=== PATIENT | male | born 1950 | race Caucasian/White ===

== ENCOUNTER 2016-08-20 12:22 | Inpatient (IN) | payer MEDICARE, OTHER ==
[~2016-08-20] VITALS: Ht 182.9 cm; Wt 74.7 kg
[~2016-08-20 12:22] MED LIST: CEPH-376 PO; HYDR50CA2 PO; NAPR500T3 PO; ONDA-40 PO
[2016-08-20] MEDS ORDERED: CEFTRIAXONE PMX 1GM/50ML 50 ML ONE (15:13)
[2016-08-20] MEDS ORDERED: LORazepam 2 MG/ML, 1ML ONE ×2 (15:15→22:34)
[2016-08-20] MEDS ORDERED: ACETAMINOPHEN 325 MG TABLET ONE (16:37)
[2016-08-20] MEDS ORDERED: LORazepam 1MG TABLET PO PRN (17:00)
[2016-08-20] MEDS: DOXYCYCLINE 100 MG in DEXTROSE 5% 250 ML IV SCH (21:45)
[2016-08-20] MEDS: NICOTINE 21 MG/24 HR PATCH.TD24 TD SCH (21:45)
[2016-08-20] MEDS: LORazepam 2 MG/ML, 1ML IV PRN (22:35)
[2016-08-20] MEDS ORDERED: POTASSIUM CHLORIDE 20 MEQ TAB.ER.PRT ONE (22:54)
[2016-08-20] MEDS: METOPROLOL TARTRATE 25 MG TABLET PO SCH (23:45)
[2016-08-21] MEDS: LORazepam 2 MG/ML, 1ML IV PRN (06:45)
[2016-08-21] MEDS ORDERED: LORazepam 2 MG/ML, 1ML ONE ×2 (06:46→10:41)
[2016-08-21 07:18] VITALS: BP 135/89
[2016-08-21] MEDS: METOPROLOL TARTRATE 25 MG TABLET PO SCH ×2 (10:45→21:56)
[2016-08-21] MEDS ORDERED: LORazepam 2 MG/ML, 1ML IV PRN (14:00)
[2016-08-21 14:31] VITALS: BP 135/81
[2016-08-21] MEDS ORDERED: MAGNESIUM SULFATE PMX 2GM/50ML 50 ML IV ONE (16:30)
[2016-08-21] MEDS ORDERED: THIAMINE IV SCH (17:00)
[2016-08-21] MEDS ORDERED: DEXTROSE 5% IV SCH (17:00)
[2016-08-21] MEDS: CEFTRIAXONE 1,000 MG in SODIUM CHLORIDE 0.9% 50 ML IVPB SCH ×2 (17:00→18:01)
[2016-08-21] MEDS ORDERED: FOLIC ACID IV SCH (17:00)
[2016-08-21] MEDS ORDERED: MVI ADULT IV SCH (17:00)
[2016-08-21] MEDS: POTASSIUM CHLORIDE 20 MEQ TAB.ER.PRT PO SCH (18:01)
[2016-08-21 19:37] VITALS: BP 127/77
[2016-08-21] MEDS: METRONIDAZOLE PMX 500MG/100ML 100 ML IVPB SCH (20:25)
[2016-08-21] MEDS: THIAMINE 100 MG in SODIUM CHLORIDE 0.9% 50 ML IV SCH (20:25)
[2016-08-21] MEDS: MULTIVITAMIN 1 TABLET PO SCH (21:55)
[2016-08-21] MEDS: NICOTINE 21 MG/24 HR PATCH.TD24 TD SCH (21:55)
[2016-08-21] MEDS: FOLIC ACID 1 MG TABLET PO SCH (21:55)
[2016-08-21] MEDS: DOXYCYCLINE 100 MG in DEXTROSE 5% 250 ML IV SCH (22:57)
[2016-08-22] MEDS: SODIUM CHLORIDE 0.9% 1,000 ML IV SCH ×2 (00:46→23:47)
[2016-08-22 01:05] VITALS: BP 116/77
[2016-08-22] MEDS: METOPROLOL TARTRATE 25 MG TABLET PO SCH ×2 (05:08→18:16)
[2016-08-22] MEDS: METRONIDAZOLE PMX 500MG/100ML 100 ML IVPB SCH ×2 (05:08→13:00)
[2016-08-22 06:07] LABS: BLOOD UREA NITROGEN 11 mg/dL (7-18)
[2016-08-22] MEDS ORDERED: POTASSIUM PHOSPHATE 44 MEQ in SODIUM CHLORIDE 0.9% 500 ML IV ONE (07:00)
[2016-08-22 07:26] VITALS: BP 139/76
[2016-08-22] MEDS: MULTIVITAMIN 1 TABLET PO SCH (08:27)
[2016-08-22] MEDS: POTASSIUM CHLORIDE 20 MEQ TAB.ER.PRT PO SCH ×2 (08:27→13:10)
[2016-08-22] MEDS: FOLIC ACID 1 MG TABLET PO SCH (08:27)
[2016-08-22] MEDS: DOXYCYCLINE 100 MG in DEXTROSE 5% 250 ML IV SCH (11:19)
[2016-08-22 13:45] VITALS: BP 129/77
[2016-08-22 15:13] LABS: ASPARTATE AMINO TRANSFERASE 42 U/L (15-37); BLOOD UREA NITROGEN 9 mg/dL (7-18)
[2016-08-22] MEDS: LORazepam 2 MG/ML, 1ML IV PRN ×3 (16:54→23:59)
[2016-08-22] MEDS: CEFTRIAXONE PMX 2GM/50ML 50 ML IVPB SCH (17:18)
[2016-08-22] MEDS: THIAMINE 100 MG in SODIUM CHLORIDE 0.9% 50 ML IV SCH (17:24)
[2016-08-22] MEDS ORDERED: PLEASE ENTER HEIGHT MC SCH (17:30)
[2016-08-22 18:26] VITALS: BP 163/104
[2016-08-22 18:51] VITALS: BP 130/77
[2016-08-22] MEDS: NICOTINE 21 MG/24 HR PATCH.TD24 TD SCH (19:43)
[2016-08-22] MEDS: CHLORDIAZEPOXIDE 25 MG CAPSULE PO PRN (19:44)
[2016-08-23 00:58] VITALS: BP 172/92
[2016-08-23] MEDS: LORazepam 2 MG/ML, 1ML IV PRN ×8 (02:01→23:51)
[2016-08-23 06:19] VITALS: BP 154/89
[2016-08-23] MEDS: METOPROLOL TARTRATE 25 MG TABLET PO SCH ×2 (06:23→17:07)
[2016-08-23 06:57] VITALS: BP 131/77
[2016-08-23] MEDS: MULTIVITAMIN 1 TABLET PO SCH (07:23)
[2016-08-23] MEDS: FOLIC ACID 1 MG TABLET PO SCH (07:23)
[2016-08-23 07:28] LABS: ASPARTATE AMINO TRANSFERASE 51 U/L (15-37); BLOOD UREA NITROGEN 7 mg/dL (7-18)
[2016-08-23 08:53] LABS: BLOOD UREA NITROGEN 12 mg/dL (7-18)
[2016-08-23 08:55] LABS: IS PT STATUS REG ER OR PRE ER? NO
[2016-08-23] MEDS ORDERED: SODIUM PHOSPHATE 20 MMOL in SODIUM CHLORIDE 0.9% 500 ML IV ONE (10:30)
[2016-08-23] MEDS ORDERED: POTASSIUM CHLORIDE 40 MEQ in SODIUM CHLORIDE 0.9% 500 ML IV ONE (11:00)
[2016-08-23 12:44] VITALS: BP 163/93
[2016-08-23] MEDS: CHLORDIAZEPOXIDE 25 MG CAPSULE PO PRN (13:39)
[2016-08-23 14:04] LABS: BLOOD UREA NITROGEN 12 mg/dL (7-18)
[2016-08-23 14:07] LABS: ASPARTATE AMINO TRANSFERASE 90 U/L (15-37)
[2016-08-23 14:09] LABS: IS PT STATUS REG ER OR PRE ER? NO
[2016-08-23] MEDS: CEFTRIAXONE PMX 2GM/50ML 50 ML IVPB SCH (17:06)
[2016-08-23] MEDS: THIAMINE 100 MG in SODIUM CHLORIDE 0.9% 50 ML IV SCH (17:06)
[2016-08-23 19:12] VITALS: BP 156/90
[2016-08-23] MEDS: NICOTINE 21 MG/24 HR PATCH.TD24 TD SCH (20:30)
[2016-08-23] MEDS: SODIUM CHLORIDE 0.9% 1,000 ML IV SCH (20:42)
[2016-08-24 02:18] VITALS: BP 155/92
[2016-08-24] MEDS: LORazepam 2 MG/ML, 1ML IV PRN (04:21)
[2016-08-24 05:07] LABS: BLOOD UREA NITROGEN 5 mg/dL (7-18)
[2016-08-24] MEDS: NS + 40MEQ KCL 1,000 ML IV SCH ×3 (05:50→22:18)
[2016-08-24 08:18] VITALS: BP 130/80
[2016-08-24] MEDS ORDERED: POTASSIUM CHLORIDE 40 MEQ in SODIUM CHLORIDE 0.9% 500 ML IV ONE (10:30)
[2016-08-24] MEDS: MULTIVITAMIN 1 TABLET PO SCH (10:48)
[2016-08-24] MEDS: FOLIC ACID 1 MG TABLET PO SCH (10:48)
[2016-08-24] MEDS: METOPROLOL TARTRATE 25 MG TABLET PO SCH ×2 (10:48→21:00)
[2016-08-24 11:31] VITALS: BP 144/91
[2016-08-24 14:00] VITALS: BP 140/91
[2016-08-24 14:08] LABS: POTASSIUM,URINE RANDOM 23 mmol/L
[2016-08-24] MEDS: CEFTRIAXONE PMX 2GM/50ML 50 ML IVPB SCH (17:39)
[2016-08-24 19:35] VITALS: BP 138/79
[2016-08-24] MEDS: THIAMINE 100 MG in SODIUM CHLORIDE 0.9% 50 ML IV SCH (22:19)
[2016-08-24] MEDS: NICOTINE 21 MG/24 HR PATCH.TD24 TD SCH (22:26)
[2016-08-25 01:44] VITALS: BP 140/71
[2016-08-25 05:51] LABS: BLOOD UREA NITROGEN 6 mg/dL (7-18)
[2016-08-25] MEDS: METOPROLOL TARTRATE 25 MG TABLET PO SCH ×2 (06:10→18:07)
[2016-08-25 07:39] VITALS: BP 126/71
[2016-08-25] MEDS: NS + 40MEQ KCL 1,000 ML IV SCH ×2 (08:32→16:00)
[2016-08-25] MEDS: MULTIVITAMIN 1 TABLET PO SCH (08:57)
[2016-08-25] MEDS: FOLIC ACID 1 MG TABLET PO SCH (08:57)
[2016-08-25 14:59] VITALS: BP 110/67
[2016-08-25] MEDS: CEFTRIAXONE PMX 2GM/50ML 50 ML IVPB SCH (16:17)
[2016-08-25 19:02] VITALS: BP 134/79
[2016-08-25] MEDS: NICOTINE 21 MG/24 HR PATCH.TD24 TD SCH (20:25)
[2016-08-25] MEDS: THIAMINE 100 MG in SODIUM CHLORIDE 0.9% 50 ML IV SCH (20:25)
[2016-08-26 02:50] VITALS: BP 129/89
[2016-08-26 05:34] LABS: ASPARTATE AMINO TRANSFERASE 61 U/L (15-37); BLOOD UREA NITROGEN 8 mg/dL (7-18)
[2016-08-26 06:43] LABS: DIFF TOTAL CELLS COUNTED 100 CELL DIFF
[2016-08-26 06:49] LABS: VERIFY COUNTS? YES
[2016-08-26 06:50] LABS: ANISOCYTOSIS 1+
[2016-08-26 07:42] VITALS: BP 133/78
[2016-08-26] MEDS: MULTIVITAMIN 1 TABLET PO SCH (08:28)
[2016-08-26] MEDS: FOLIC ACID 1 MG TABLET PO SCH (08:28)
[2016-08-26] MEDS: CHLORDIAZEPOXIDE 25 MG CAPSULE PO PRN (08:28)
[2016-08-26] MEDS: METOPROLOL TARTRATE 25 MG TABLET PO SCH ×2 (08:29→16:42)
[2016-08-26 13:30] VITALS: BP 135/72
[2016-08-26] MEDS: CEFTRIAXONE PMX 2GM/50ML 50 ML IVPB SCH (16:42)
[2016-08-26 19:34] VITALS: BP 138/78
[2016-08-26] MEDS: NICOTINE 21 MG/24 HR PATCH.TD24 TD SCH (20:22)
[2016-08-26] MEDS ORDERED: ENOXAPARIN 40 MG/0.4 ML SQ SCH (21:30)
[2016-08-26] MEDS: THIAMINE 100 MG in SODIUM CHLORIDE 0.9% 50 ML IV SCH (22:18)
[2016-08-27 02:12] VITALS: BP 147/79
[2016-08-27 05:50] VITALS: BP 146/71
[2016-08-27] MEDS: METOPROLOL TARTRATE 25 MG TABLET PO SCH (05:52)
[2016-08-27 06:40] VITALS: BP 128/72
[2016-08-27] MEDS: MULTIVITAMIN 1 TABLET PO SCH (10:00)
[2016-08-27] MEDS: FOLIC ACID 1 MG TABLET PO SCH (10:00)
[2016-08-27] MEDS ORDERED: THIAMINE 100MG TABLET PO SCH (11:30)
[2016-08-27] MEDS ORDERED: CEFDINIR 300 MG CAPSULE PO SCH (11:30)
[2016-08-27] MEDS ORDERED: GUAIFENESIN 200 MG TABLET PO SCH (11:30)
[2016-08-27] MEDS ORDERED: LORA-446 PO (11:44)
[2016-08-27] MEDS ORDERED: THIA100T6 PO (11:44)
[2016-08-27] MEDS ORDERED: METO25TA35 PO (11:44)
[2016-08-27] MEDS ORDERED: FOLI-17 PO (11:44)
[2016-08-27] MEDS ORDERED: GUAI200T3 PO (11:44)
[2016-08-27] MEDS ORDERED: CEFD300C37 PO (11:44)
[2016-08-27] MEDS ORDERED: PNEUMOCOCCAL 23 VACCINE IM-VACC ONE (13:30)
[2016-08-27 13:40] VITALS: BP 146/74
== END 2016-08-27 14:40 | DRG 871 ==
LOC: ED 14:00 → 5SO 15:55 → ED 17:12 → 4WST 08-24 11:21 → DCLOUNGE 08-27 14:05
PROVIDERS: ADMIT Internal Medicine; ATTEND Internal Medicine
PROC: HZ34ZZZ Individual Counseling for Substance Abuse Treatment, Interpersonal (ICD-10-PCS; principal; 2016-08-20)
PROC: HZ2ZZZZ Detoxification Services for Substance Abuse Treatment (ICD-10-PCS; 2016-08-20)
DX: A41.9 Sepsis, unspecified organism (principal); J69.0 Pneumonitis due to inhalation of food and vomit; J15.4 Pneumonia due to other streptococci; J96.01 Acute respiratory failure with hypoxia; F10.239 Alcohol dependence with withdrawal, unspecified; E46 Unspecified protein-calorie malnutrition; E87.1 Hypo-osmolality and hyponatremia; I48.92 Unspecified atrial flutter; I47.2 Ventricular tachycardia; E87.6 Hypokalemia; B95.3 Streptococcus pneumoniae as the cause of diseases classified elsewhere; D64.9 Anemia, unspecified; E83.39 Other disorders of phosphorus metabolism; F17.210 Nicotine dependence, cigarettes, uncomplicated; G62.1 Alcoholic polyneuropathy; W18.30XA Fall on same level, unspecified, initial encounter; F99 Mental disorder, not otherwise specified; I48.91 Unspecified atrial fibrillation; F45.8 Other somatoform disorders; Y93.89 Activity, other specified; Z79.899 Other long term (current) drug therapy; Y92.89 Other specified places as the place of occurrence of the external cause; Z91.19 Patient's noncompliance with other medical treatment and regimen; Z68.22 Body mass index [BMI] 22.0-22.9, adult; Z71.51 Drug abuse counseling and surveillance of drug abuser; Z71.41 Alcohol abuse counseling and surveillance of alcoholic
CPT/HCPCS: 36415; 71010; 80048; 80053; 80061; 80307; 82040; 82436; 83605; 83735; 83880; 83930; 83935; 84100; 84132; 84133; 84145; 84300; 84443; 84484; 85025; 87040; 87077; 87181; 87324; 90732; 93005; 93308; 93321; 93325; 96374; J0696; J1650; J3411; J3480; J7060; J2060; J3475; J7030; J7040

== ENCOUNTER 2016-12-20 14:38 | Emergency (ER) | payer MEDICARE ==
[~2016-12-20] VITALS: Ht 177.8 cm; Wt 70.0 kg
[~2016-12-20 14:38] MED LIST changes: +CEFD300C37 PO; +FOLI-17 PO; +GUAI200T3 PO; +LORA-446 PO; +METO25TA35 PO; -ONDA-40 PO; +ONDA8TAB15 PO; +THIA100T6 PO
[2016-12-20 15:18] LABS: HEMATOCRIT 47.5 % (39.2-51.8); HEMOGLOBIN 15.9 g/dL (13.7-18.0)
[2016-12-20 15:31] LABS: ASPARTATE AMINO TRANSFERASE 127 U/L (15-37); BLOOD UREA NITROGEN 5 mg/dL (7-18)
[2016-12-20 15:45] LABS: DIFF TOTAL CELLS COUNTED 100 CELL DIFF
[2016-12-20 15:48] LABS: VERIFY COUNTS? YES
[2016-12-20 19:19] VITALS: BP 100/66
== END 2016-12-20 19:24 | disposition home or self-care (01) ==
LOC: ED 19:00
DX: F10.120 Alcohol abuse with intoxication, uncomplicated (principal)
CPT/HCPCS: 36415; 70450; 80053; 85025; 99285

== ENCOUNTER 2017-04-15 09:05 | Emergency (ER) | payer MEDICARE ==
[~2017-04-15] VITALS: Ht 182.9 cm; Wt 80.0 kg
[~2017-04-15 09:05] MED LIST changes: -NAPR500T3 PO; +NAPR500T4 PO
[2017-04-15] MEDS ORDERED: LORazepam 2 MG/ML, 1ML ONE ×2 (09:26→09:56)
[2017-04-15] MEDS ORDERED: SODIUM CHLORIDE FLUSH 10ML SYR IVF ONE (09:30)
[2017-04-15] MEDS ORDERED: SODIUM CHLORIDE 0.9% 1,000ML IVBOLUS ONE ×2 (09:30→11:30)
[2017-04-15] MEDS: LORazepam 2 MG/ML, 1ML IVPush PRN ×2 (09:50→10:11)
[2017-04-15 10:33] VITALS: BP 130/91
[2017-04-15 10:35] LABS: BASOPHILS # (AUTO) 0.05 x10^3/uL (0-0.1); BASOPHILS % (AUTO) 1 % (0-1); EOSINOPHILS # (AUTO) 0.01 x10^3/uL (0-0.4); EOSINOPHILS % (AUTO) 0 % (1-7); LYMPHOCYTES # (AUTO) 1.13 x10^3/uL (1-3.4); LYMPHOCYTES % (AUTO) 22 % (22-44); MD NO; MEAN CORPUSCULAR HEMOGLOBIN 29.2 pg (27.5-34.5); MEAN CORPUSCULAR HGB CONC 33.3 g/dL (33.2-36.2); MEAN CORPUSCULAR VOLUME 87.9 fL (81-97); MEAN PLATELET VOLUME 7.1 fL (7.4-10.4); MONOCYTES # (AUTO) 0.29 x10^3/uL (0.2-0.8); MONOCYTES % (AUTO) 6 % (2-9); NEUTROPHILS # (AUTO) 3.75 x10^3/uL (1.8-6.8); NEUTROPHILS % (AUTO) 72 % (42-75); PLATELET COUNT 453 x10^3/uL (130-400); RED BLOOD COUNT 4.24 x10^6/uL (4.38-5.82); RED CELL DISTRIBUTION WIDTH 17.6 % (9.4-14.8)
[2017-04-15 10:48] LABS: ALANINE AMINOTRANSFERASE 115 U/L (12-78); ALBUMIN 3.3 g/dL (3.4-5.0); ANION GAP 11 mmol/L (5-15); CALCIUM 7.9 mg/dL (8.5-10.1); CHLORIDE 102 mmol/L (98-107); CREATININE 0.43 mg/dL (0.7-1.3)
[2017-04-15 10:50] LABS: ALKALINE PHOSPHATASE 66 U/L (45-117); BILIRUBIN,TOTAL 0.4 mg/dL (0.2-1.0); TOTAL PROTEIN 6.8 g/dL (6.4-8.2)
== END 2017-04-15 13:00 | disposition home or self-care (01) ==
LOC: ED 10:35
DX: F10.239 Alcohol dependence with withdrawal, unspecified (principal); R45.1 Restlessness and agitation
CPT/HCPCS: 36415; 71045; 80053; 85025; 93005; 96374; 99285; J2060; J7030

== ENCOUNTER 2017-04-22 20:53 | Emergency (ER) | payer MEDICARE ==
[~2017-04-22] VITALS: Ht 182.9 cm; Wt 76.0 kg
[2017-04-22] MEDS ORDERED: LORazepam 1MG TABLET PO ONE (21:30)
[2017-04-22] MEDS ORDERED: THIAMINE 100MG TABLET PO ONE (21:30)
[2017-04-22] MEDS ORDERED: THIAMINE 100MG TABLET ONE (21:47)
[2017-04-22] MEDS ORDERED: LORazepam 1MG TABLET ONE (21:48)
[2017-04-22 21:57] LABS: BASOPHILS # (AUTO) 0.02 x10^3/uL (0-0.1); BASOPHILS % (AUTO) 1 % (0-1); EOSINOPHILS # (AUTO) 0.09 x10^3/uL (0-0.4); EOSINOPHILS % (AUTO) 2 % (1-7); LYMPHOCYTES # (AUTO) 1.47 x10^3/uL (1-3.4); LYMPHOCYTES % (AUTO) 30 % (22-44); MD NO; MEAN CORPUSCULAR HEMOGLOBIN 29.4 pg (27.5-34.5); MEAN CORPUSCULAR HGB CONC 32.9 g/dL (33.2-36.2); MEAN CORPUSCULAR VOLUME 89.3 fL (81-97); MEAN PLATELET VOLUME 7.9 fL (7.4-10.4); MONOCYTES # (AUTO) 0.53 x10^3/uL (0.2-0.8); MONOCYTES % (AUTO) 11 % (2-9); NEUTROPHILS # (AUTO) 2.84 x10^3/uL (1.8-6.8); NEUTROPHILS % (AUTO) 57 % (42-75); PLATELET COUNT 142 x10^3/uL (130-400); RED BLOOD COUNT 4.33 x10^6/uL (4.38-5.82); RED CELL DISTRIBUTION WIDTH 17.6 % (9.4-14.8)
[2017-04-22 22:09] LABS: ALANINE AMINOTRANSFERASE 138 U/L (12-78); ALBUMIN 3.2 g/dL (3.4-5.0); ANION GAP 10 mmol/L (5-15); CALCIUM 8.1 mg/dL (8.5-10.1); CHLORIDE 95 mmol/L (98-107); CREATININE 0.46 mg/dL (0.7-1.3)
[2017-04-22 22:11] LABS: ALKALINE PHOSPHATASE 59 U/L (45-117); BILIRUBIN,TOTAL 0.3 mg/dL (0.2-1.0); TOTAL PROTEIN 7.2 g/dL (6.4-8.2)
[2017-04-22 22:30] VITALS: BP 145/78
== END 2017-04-22 23:25 | disposition home or self-care (01) ==
LOC: ED 21:38
DX: F10.239 Alcohol dependence with withdrawal, unspecified (principal); E87.1 Hypo-osmolality and hyponatremia; R79.89 Other specified abnormal findings of blood chemistry; I10 Essential (primary) hypertension; D72.829 Elevated white blood cell count, unspecified
CPT/HCPCS: 36415; 80053; 85025; 99284

== ENCOUNTER 2017-08-08 18:49 | Emergency (ER) | payer MEDICARE ==
[~2017-08-08] VITALS: Ht 182.9 cm; Wt 77.5 kg
[~2017-08-08 18:49] MED LIST changes: +NAPR-685 PO; -NAPR500T4 PO
[2017-08-08 18:52] VITALS: BP 101/60
[2017-08-08 19:45] LABS: BASOPHILS # (AUTO) 0.03 x10^3/uL (0-0.1); BASOPHILS % (AUTO) 0 % (0-1); EOSINOPHILS # (AUTO) 0.23 x10^3/uL (0-0.4); EOSINOPHILS % (AUTO) 2 % (1-7); LYMPHOCYTES # (AUTO) 3.23 x10^3/uL (1-3.4); LYMPHOCYTES % (AUTO) 32 % (22-44); MD NO; MEAN CORPUSCULAR HEMOGLOBIN 28.8 pg (27.5-34.5); MEAN CORPUSCULAR VOLUME 87.3 fL (81-97); MONOCYTES # (AUTO) 0.39 x10^3/uL (0.2-0.8); MONOCYTES % (AUTO) 4 % (2-9); NEUTROPHILS # (AUTO) 6.16 x10^3/uL (1.8-6.8); NEUTROPHILS % (AUTO) 61 % (42-75); PLATELET COUNT 152 x10^3/uL (130-400); RED BLOOD COUNT 5.52 x10^6/uL (4.38-5.82); RED CELL DISTRIBUTION WIDTH 17.3 % (9.4-14.8)
[2017-08-08 20:09] LABS: ALANINE AMINOTRANSFERASE 53 U/L (12-78); ALBUMIN 3.7 g/dL (3.4-5.0); ANION GAP 11 mmol/L (5-15); CALCIUM 8.3 mg/dL (8.5-10.1); CHLORIDE 101 mmol/L (98-107); CREATININE 0.73 mg/dL (0.7-1.3)
[2017-08-08 20:16] LABS: ALKALINE PHOSPHATASE 75 U/L (45-117); BILIRUBIN,TOTAL 0.4 mg/dL (0.2-1.0)
== END 2017-08-08 20:53 | disposition home or self-care (01) ==
LOC: ED 20:47
DX: S40.261A Insect bite (nonvenomous) of right shoulder, initial encounter (principal); S40.862A Insect bite (nonvenomous) of left upper arm, initial encounter; S40.861A Insect bite (nonvenomous) of right upper arm, initial encounter; S40.262A Insect bite (nonvenomous) of left shoulder, initial encounter; S70.361A Insect bite (nonvenomous), right thigh, initial encounter; S20.369A Insect bite (nonvenomous) of unspecified front wall of thorax, initial encounter; F10.220 Alcohol dependence with intoxication, uncomplicated; I10 Essential (primary) hypertension; E87.1 Hypo-osmolality and hyponatremia; E87.6 Hypokalemia; Z79.899 Other long term (current) drug therapy; Z86.19 Personal history of other infectious and parasitic diseases; W57.XXXA Bitten or stung by nonvenomous insect and other nonvenomous arthropods, initial encounter; Y93.89 Activity, other specified; Y92.89 Other specified places as the place of occurrence of the external cause; Y99.8 Other external cause status
CPT/HCPCS: 36415; 80053; 80307; 82140; 85025; 99284

== ENCOUNTER 2017-09-05 17:50 | Emergency (ER) | payer MEDICARE ==
[~2017-09-05] VITALS: Ht 167.6 cm; Wt 73.0 kg
[2017-09-05 17:52] VITALS: BP 105/71
== END 2017-09-05 20:33 | disposition home or self-care (01) ==
LOC: ED 20:28
DX: F10.220 Alcohol dependence with intoxication, uncomplicated (principal); I10 Essential (primary) hypertension; F17.200 Nicotine dependence, unspecified, uncomplicated
CPT/HCPCS: 99283

== ENCOUNTER 2017-09-12 15:32 | Emergency (ER) | payer MEDICARE ==
[~2017-09-12] VITALS: Ht 182.9 cm; Wt 71.5 kg
[2017-09-12] MEDS ORDERED: SODIUM CHLORIDE 0.9% 1,000 ML IV ONE (16:17)
[2017-09-12 16:22] LABS: BASOPHILS # (AUTO) 0.03 x10^3/uL (0-0.1); BASOPHILS % (AUTO) 0 % (0-1); EOSINOPHILS # (AUTO) 0.09 x10^3/uL (0-0.4); EOSINOPHILS % (AUTO) 2 % (1-7); LYMPHOCYTES # (AUTO) 2.47 x10^3/uL (1-3.4); LYMPHOCYTES % (AUTO) 39 % (22-44); MD NO; MEAN CORPUSCULAR HEMOGLOBIN 28.7 pg (27.5-34.5); MEAN CORPUSCULAR HGB CONC 33.2 g/dL (33.2-36.2); MEAN CORPUSCULAR VOLUME 86.5 fL (81-97); MEAN PLATELET VOLUME 7.2 fL (7.4-10.4); MONOCYTES % (AUTO) 5 % (2-9); NEUTROPHILS # (AUTO) 3.38 x10^3/uL (1.8-6.8); NEUTROPHILS % (AUTO) 54 % (42-75); PLATELET COUNT 291 x10^3/uL (130-400); RED BLOOD COUNT 4.45 x10^6/uL (4.38-5.82); RED CELL DISTRIBUTION WIDTH 17.9 % (9.4-14.8)
[2017-09-12] MEDS ORDERED: SODIUM CHLORIDE FLUSH 10ML SYR IVF ONE (16:30)
[2017-09-12] MEDS ORDERED: ONDANSETRON ODT 4 MG PO ONE (16:30)
[2017-09-12] MEDS ORDERED: SODIUM CHLORIDE 0.9% 1,000ML IVBOLUS ONE (16:30)
[2017-09-12 16:32] LABS: ALANINE AMINOTRANSFERASE 34 U/L (12-78); ALBUMIN 3.3 g/dL (3.4-5.0); ANION GAP 11 mmol/L (5-15); CALCIUM 7.9 mg/dL (8.5-10.1); CHLORIDE 102 mmol/L (98-107); CREATININE 0.64 mg/dL (0.7-1.3)
[2017-09-12 16:34] LABS: ALKALINE PHOSPHATASE 61 U/L (45-117); BILIRUBIN,TOTAL 0.5 mg/dL (0.2-1.0); TOTAL PROTEIN 6.8 g/dL (6.4-8.2)
[2017-09-12 18:23] VITALS: BP 128/78
== END 2017-09-12 19:53 | disposition home or self-care (01) ==
LOC: ED 18:28
DX: K29.20 Alcoholic gastritis without bleeding (principal); I10 Essential (primary) hypertension; E87.6 Hypokalemia; Z86.19 Personal history of other infectious and parasitic diseases; Z79.899 Other long term (current) drug therapy; F17.200 Nicotine dependence, unspecified, uncomplicated
CPT/HCPCS: 36415; 80053; 80307; 83690; 85025; 96360; 96361; 99285; J7030

== ENCOUNTER 2018-01-24 01:48 | Emergency (ER) | payer MEDICARE ==
[~2018-01-24] VITALS: Ht 182.9 cm; Wt 75.0 kg
[~2018-01-24 01:48] MED LIST changes: -THIA100T6 PO; +THIA100T67 PO
[2018-01-24 02:39] LABS: BASOPHILS # (AUTO) 0.13 x10^3/uL (0-0.1); BASOPHILS % (AUTO) 2 % (0-1); EOSINOPHILS # (AUTO) 0.06 x10^3/uL (0-0.4); EOSINOPHILS % (AUTO) 1 % (1-7); LYMPHOCYTES # (AUTO) 1.83 x10^3/uL (1-3.4); LYMPHOCYTES % (AUTO) 35 % (22-44); MD NO; MEAN CORPUSCULAR HEMOGLOBIN 28.8 pg (27.5-34.5); MEAN CORPUSCULAR HGB CONC 33.3 g/dL (33.2-36.2); MEAN CORPUSCULAR VOLUME 86.5 fL (81-97); MEAN PLATELET VOLUME 7.7 fL (7.4-10.4); MONOCYTES # (AUTO) 0.41 x10^3/uL (0.2-0.8); MONOCYTES % (AUTO) 8 % (2-9); NEUTROPHILS # (AUTO) 2.75 x10^3/uL (1.8-6.8); NEUTROPHILS % (AUTO) 53 % (42-75); PLATELET COUNT 207 x10^3/uL (130-400); RED BLOOD COUNT 4.71 x10^6/uL (4.38-5.82); RED CELL DISTRIBUTION WIDTH 17.7 % (9.4-14.8)
[2018-01-24 02:42] LABS: ALBUMIN 3.6 g/dL (3.4-5.0); ANION GAP 11 mmol/L (5-15); CALCIUM 7.9 mg/dL (8.5-10.1); CHLORIDE 95 mmol/L (98-107); CREATININE 0.64 mg/dL (0.7-1.3)
[2018-01-24 03:18] VITALS: BP 141/86
== END 2018-01-24 04:27 | disposition home or self-care (01) ==
LOC: ED 02:16
DX: F10.120 Alcohol abuse with intoxication, uncomplicated (principal); Z72.9 Problem related to lifestyle, unspecified; I10 Essential (primary) hypertension; I48.92 Unspecified atrial flutter; F17.200 Nicotine dependence, unspecified, uncomplicated; W18.30XA Fall on same level, unspecified, initial encounter; Y93.89 Activity, other specified; Y92.89 Other specified places as the place of occurrence of the external cause; Y99.8 Other external cause status
CPT/HCPCS: 36415; 70450; 80048; 80307; 82040; 85025; 99285

== ENCOUNTER 2018-01-29 18:08 | Emergency (ER) | payer MEDICARE ==
[~2018-01-29] VITALS: Ht 170.2 cm; Wt 64.0 kg
[2018-01-29 18:49] LABS: BASOPHILS # (AUTO) 0.05 x10^3/uL (0-0.1); BASOPHILS % (AUTO) 1 % (0-1); EOSINOPHILS # (AUTO) 0.09 x10^3/uL (0-0.4); EOSINOPHILS % (AUTO) 2 % (1-7); LYMPHOCYTES % (AUTO) 52 % (22-44); MD NO; MEAN CORPUSCULAR HEMOGLOBIN 29.3 pg (27.5-34.5); MEAN CORPUSCULAR HGB CONC 33.6 g/dL (33.2-36.2); MEAN CORPUSCULAR VOLUME 87.3 fL (81-97); MEAN PLATELET VOLUME 7.6 fL (7.4-10.4); MONOCYTES # (AUTO) 0.56 x10^3/uL (0.2-0.8); MONOCYTES % (AUTO) 11 % (2-9); NEUTROPHILS # (AUTO) 1.77 x10^3/uL (1.8-6.8); NEUTROPHILS % (AUTO) 34 % (42-75); PLATELET COUNT 184 x10^3/uL (130-400); RED BLOOD COUNT 4.56 x10^6/uL (4.38-5.82); RED CELL DISTRIBUTION WIDTH 17.4 % (9.4-14.8)
[2018-01-29 18:58] LABS: ALBUMIN 3.7 g/dL (3.4-5.0); ANION GAP 10 mmol/L (5-15); CALCIUM 8.8 mg/dL (8.5-10.1); CHLORIDE 95 mmol/L (98-107)
[2018-01-29 19:03] LABS: CREATININE 0.58 mg/dL (0.7-1.3)
[2018-01-29 20:04] VITALS: BP 128/78
== END 2018-01-29 20:07 | disposition home or self-care (01) ==
LOC: ED 19:58
DX: F10.120 Alcohol abuse with intoxication, uncomplicated (principal); G93.40 Encephalopathy, unspecified; Z86.19 Personal history of other infectious and parasitic diseases
CPT/HCPCS: 36415; 80048; 80307; 82040; 85025; 99284

== ENCOUNTER 2018-06-19 15:26 | Emergency (ER) | payer MEDICARE ==
[~2018-06-19] VITALS: Ht 182.9 cm; Wt 72.0 kg
--- NOTE | 2018-06-19 15:45 | NUR ---
Report received from Hector GARCIA. Patient bib by jb for reported syncopal episode at care home. Patient admits to "1.5 beers today." ems placed piv and administered 500ml NS. On arrival etoh smell obvious, hr 81, 134/80. Patient placed on monitor, given blanket/pillow and updated on estimated poc
[2018-06-19 16:16] LABS: BASOPHILS # (AUTO) 0.06 x10^3/uL (0-0.1); BASOPHILS % (AUTO) 1 % (0-1); EOSINOPHILS # (AUTO) 0.07 x10^3/uL (0-0.4); EOSINOPHILS % (AUTO) 1 % (1-7); LYMPHOCYTES # (AUTO) 1.18 x10^3/uL (1-3.4); LYMPHOCYTES % (AUTO) 18 % (22-44); MD NO; MEAN CORPUSCULAR HEMOGLOBIN 27.5 pg (27.5-34.5); MEAN CORPUSCULAR HGB CONC 32.7 g/dL (33.2-36.2); MEAN CORPUSCULAR VOLUME 84.1 fL (81-97); MEAN PLATELET VOLUME 7.6 fL (7.4-10.4); MONOCYTES % (AUTO) 8 % (2-9); NEUTROPHILS # (AUTO) 4.62 x10^3/uL (1.8-6.8); NEUTROPHILS % (AUTO) 72 % (42-75); PLATELET COUNT 297 x10^3/uL (130-400); RED BLOOD COUNT 4.46 x10^6/uL (4.38-5.82); RED CELL DISTRIBUTION WIDTH 15.8 % (9.4-14.8)
[2018-06-19 16:30] LABS: ALANINE AMINOTRANSFERASE 38 U/L (12-78); ALBUMIN 3.1 g/dL (3.4-5.0); ANION GAP 9 mmol/L (5-15); CHLORIDE 97 mmol/L (98-107); CREATININE 0.47 mg/dL (0.7-1.3)
[2018-06-19] MEDS ORDERED: QUET50TA5 PO (16:33)
[2018-06-19] MEDS ORDERED: TRAZ-137 PO (16:33)
[2018-06-19 16:34] LABS: ALKALINE PHOSPHATASE 74 U/L (45-117); BILIRUBIN,TOTAL 0.4 mg/dL (0.2-1.0); TOTAL PROTEIN 6.4 g/dL (6.4-8.2); TROPONIN I < 0.015 ng/mL (0.000-0.045)
--- NOTE | 2018-06-19 17:16 | NUR ---
PATIENT AROUSED FROM [facility] FOR RE-ASSESSMENT. A+OX4. TAKING PO SOLIDS/LIQUIDS W/OUT DIFFICULTY. ORTHO STATIC NEGATIVE SUPINE 80, 148/74, STANDING 89, 146/88. PROVIDER TO BEDSIDE-REPORTS HE WILL BE DISCHARGED SOON. PATIENT AGREEABLE. PROVIDED W/ TAXI VOUCHER
[2018-06-19 17:21] VITALS: BP 146/88
--- NOTE | 2018-06-19 17:35 | NUR ---
PHP WE[employer] DEVELOPER ATTEMPTING TO LOCATE PROVIDER TO FIND D/C PAPERWORK FOR THE SECOND TIME.
--- NOTE | 2018-06-19 17:47 | NUR ---
PATIENT AMBULATED PAULA TO RESTROOM WITH NO COMPLAINTS OR ABNORMALITIES NOTED
== END 2018-06-19 17:49 | disposition home or self-care (01) ==
LOC: ED 17:38
DX: E87.1 Hypo-osmolality and hyponatremia (principal); F17.200 Nicotine dependence, unspecified, uncomplicated; Z86.19 Personal history of other infectious and parasitic diseases; Z72.9 Problem related to lifestyle, unspecified
CPT/HCPCS: 36415; 71045; 80053; 80307; 84484; 85025; 93005; 99284

== ENCOUNTER 2018-07-28 16:04 | Emergency (ER) | payer SELFPAY ==
[~2018-07-28] VITALS: Ht 182.9 cm; Wt 81.0 kg
[~2018-07-28 16:04] MED LIST changes: +QUET50TA5 PO; +TRAZ-137 PO
--- NOTE | 2018-07-28 16:10 | NUR ---
Pt BIB [facility] after police unable to take pt to [facility] for public intoxication due to inability to ambulate. Pt stated to DAVIS that he drank 3 'earthquakes'. Arrives smelling very strongly of alcohol.
[2018-07-28 16:13] VITALS: BP 101/75
--- NOTE | 2018-07-28 18:50 | NUR ---
Pt yelling at RN for "lots of milk and sandwiches" Pt given crackers and water and warm blanket.
--- NOTE | 2018-07-28 21:03 | NUR ---
Pt found walking down [address] to restroom, pt requesting discharge
== END 2018-07-28 21:07 | disposition home or self-care (01) ==
LOC: ED 18:57
DX: F10.129 Alcohol abuse with intoxication, unspecified (principal); I48.92 Unspecified atrial flutter; Z86.19 Personal history of other infectious and parasitic diseases
CPT/HCPCS: 99283

== ENCOUNTER 2018-07-31 10:41 | Emergency (ER) | payer SELFPAY ==
[~2018-07-31] VITALS: Ht 175.3 cm; Wt 75.0 kg
[2018-07-31 10:52] VITALS: BP 125/68
--- NOTE | 2018-07-31 11:00 | NUR ---
PT FOUND ATTEMPTING TO GET UP WITHOUT ASSISTANCE, EUSEBIO REQUESTED D/T PT'S UNSTERADY STATE & IMPLUSIVE BEHAVIOR
--- NOTE | 2018-07-31 11:55 | NUR ---
PT MOVED TO ED ROOM 39 TO BE IN VIEW OF SITTER.
[2018-07-31 12:05] LABS: ALBUMIN 3.1 g/dL (3.4-5.0); ANION GAP 10 mmol/L (5-15); CALCIUM 8.4 mg/dL (8.5-10.1); CHLORIDE 99 mmol/L (98-107); CREATININE 0.36 mg/dL (0.7-1.3)
--- NOTE | 2018-07-31 13:02 | NUR ---
PT YELLING AND CURSING AT STAFF. REMINDED THAT THIS IS NOT ACCEPTABLE BEHAVIOR.
--- NOTE | 2018-07-31 13:02 | NUR ---
PT STANDING AT END OF BED. URINAL TO PT.
--- NOTE | 2018-07-31 13:16 | NUR ---
PT EATING LUNCH
--- NOTE | 2018-07-31 13:50 | NUR ---
PT STATES HE LOST HIS CANE. NEW CANE TO PT. AMBULATORY W/ CANE.
== END 2018-07-31 14:14 | disposition home or self-care (01) ==
LOC: ED 12:44
DX: F10.220 Alcohol dependence with intoxication, uncomplicated (principal); F17.200 Nicotine dependence, unspecified, uncomplicated
CPT/HCPCS: 36415; 80048; 80307; 82040; 99283

== ENCOUNTER 2018-08-19 19:23 | Emergency (ER) | payer SELFPAY ==
[2018-08-19 19:41] VITALS: BP 110/70
== END 2018-08-19 19:47 ==
LOC: ED 19:36
DX: F10.229 Alcohol dependence with intoxication, unspecified (principal); I48.92 Unspecified atrial flutter; Z86.19 Personal history of other infectious and parasitic diseases
CPT/HCPCS: 99283

== ENCOUNTER 2018-10-04 15:29 | Emergency (ER) | payer SELFPAY ==
[~2018-10-04] VITALS: Ht 182.9 cm; Wt 80.0 kg
[2018-10-04 15:29] VITALS: BP 112/65
--- NOTE | 2018-10-04 15:29 | NUR ---
Pt BIB [facility]-pt admits to ETOH, requesting food, c/o "throwing up a couple days ago". Dr. Ramírez at bedside to evaluate pt. Pt requesting food to eat. Per Dr. Ramírez pt allowed to have water. Pt provided water. Pt able to position self in [facility] coles.
--- NOTE | 2018-10-04 15:54 | NUR ---
Pt provided with urinal and encouraged to provide urine sample as soon as possible. Pt provided privacy.
--- NOTE | 2018-10-04 16:05 | NUR ---
Pt hostile with staff, refusing to stay in room. Pt educated that if he wants to be treated as a patient he must stay in his room and may not harrass staff. Pt continually leaving room and harrassing staff despite this education. Security called to escort pt off property. Dr. Ramírez updated on this.
== END 2018-10-04 16:09 | disposition home or self-care (01) ==
LOC: ED 16:00
DX: F10.220 Alcohol dependence with intoxication, uncomplicated (principal); I48.92 Unspecified atrial flutter; Z86.19 Personal history of other infectious and parasitic diseases
CPT/HCPCS: 99283

== ENCOUNTER 2019-03-25 17:22 | Emergency (ER) | payer SELFPAY ==
[~2019-03-25 17:22] MED LIST changes: +AMLO2.5T5 PO; -GUAI200T3 PO; +GUAI200T37 PO; +SODI1TAB PO
--- NOTE | 2019-03-25 17:38 | NUR ---
Pt arrives via [facility] after being found intoxicated on the sidewalk. Pt is awakens easily and obeys commands. Unable to complete full triage/clinical screen d/t pt unable to appropriately answer questions. Pt on pulse ox/HR monitor. Warm blanket placed on pt.
--- NOTE | 2019-03-25 18:15 | NUR ---
Pt sleeping on gurney. Postive chest rise and fall noted. Pt remains on pulse ox/HR monitor.
[2019-03-25 19:23] LABS: BASOPHILS # (AUTO) 0.06 x10^3/uL (0-0.1); BASOPHILS % (AUTO) 1 % (0-1); EOSINOPHILS # (AUTO) 0.16 x10^3/uL (0-0.4); EOSINOPHILS % (AUTO) 3 % (1-7); LYMPHOCYTES % (AUTO) 37 % (22-44); MD NO; MEAN CORPUSCULAR HEMOGLOBIN 26.9 pg (27.5-34.5); MEAN CORPUSCULAR HGB CONC 32.3 g/dL (33.2-36.2); MEAN CORPUSCULAR VOLUME 83.3 fL (81-97); MEAN PLATELET VOLUME 7.6 fL (7.4-10.4); MONOCYTES # (AUTO) 0.32 x10^3/uL (0.2-0.8); MONOCYTES % (AUTO) 5 % (2-9); NEUTROPHILS # (AUTO) 3.42 x10^3/uL (1.8-6.8); NEUTROPHILS % (AUTO) 55 % (42-75); PLATELET COUNT 351 x10^3/uL (130-400); RED BLOOD COUNT 4.49 x10^6/uL (4.38-5.82)
[2019-03-25 19:33] LABS: ALANINE AMINOTRANSFERASE 37 U/L (12-78); ALBUMIN 3.1 g/dL (3.4-5.0); ANION GAP 10 mmol/L (5-15); CALCIUM 7.9 mg/dL (8.5-10.1); CHLORIDE 104 mmol/L (98-107)
[2019-03-25 19:35] LABS: SALICYLATE LEVEL < 1.7 mg/dL (2.8-20.0)
[2019-03-25 19:36] LABS: ALKALINE PHOSPHATASE 79 U/L (45-117); BILIRUBIN,TOTAL 0.2 mg/dL (0.2-1.0); CREATININE 0.64 mg/dL (0.7-1.3); TOTAL PROTEIN 6.7 g/dL (6.4-8.2)
--- NOTE | 2019-03-25 19:59 | NUR ---
PT GIVEN A WARM BLANKET FOR COMFORT.
--- NOTE | 2019-03-25 20:24 | NUR ---
Pt resting on gurney. Pt opened eyes when RN entered room. Urine sent.
--- NOTE | 2019-03-25 20:38 | NUR ---
VS retaken. Pt noted to be 87% room air. Pt placed on 1.5L NC for return of sats. Pt on continous pulse ox probe. Pt has eaten a meal tray, and drank 2 juices and 1 milk since being in the ER.
[2019-03-25 20:53] LABS: AMPHETAMINE SCREEN, URINE Negative (Negative); BARBITURATE SCREEN, URINE Negative (Negative); BENZODIAZEPINE SCREEN, URINE Positive (Negative); CANNABINOID SCREEN, URINE Negative (Negative); COCAINE SCREEN, URINE Negative (Negative); METHADONE SCREEN, URINE Negative (Negative); OPIATE SCREEN, URINE Negative (Negative)
[2019-03-25 21:40] VITALS: BP 129/74
--- NOTE | 2019-03-25 21:47 | NUR ---
Pt off oxygen. Pt ambulated to bathroom. Pt now demanding a bus pass.
--- NOTE | 2019-03-25 21:53 | NUR ---
Pt ambulatory without assistance. Pt AOx4. Pt provided with bus pass. Discharge instructions given. Pt ambulated out of ER.
== END 2019-03-25 21:56 | disposition home or self-care (01) ==
LOC: ED 21:50
DX: F10.120 Alcohol abuse with intoxication, uncomplicated (principal); F13.129 Sedative, hypnotic or anxiolytic abuse with intoxication, unspecified; Y90.9 Presence of alcohol in blood, level not specified
CPT/HCPCS: 36415; 70450; 80053; 80307; 82140; 85025; 93005; 99284

== ENCOUNTER 2019-04-01 13:46 | Emergency (ER) | payer SELFPAY ==
[~2019-04-01] VITALS: Ht 182.9 cm; Wt 73.0 kg
[~2019-04-01 13:46] MED LIST changes: -ONDA8TAB15 PO; +ONDA8TAB18 PO; -TRAZ-137 PO; +TRAZ-175 PO
[2019-04-01 13:51] VITALS: BP 140/76
[2019-04-01] MEDS ORDERED: TRAZADONE (14:03)
--- NOTE | 2019-04-01 14:20 | NUR ---
BREATHALYZER ATTEMPTED: UNSUCCESSFUL X 5 DUE TO "INSUFFICIENT FLOW".
--- NOTE | 2019-04-01 14:35 | NUR ---
TO CT PER SUZE
--- NOTE | 2019-04-01 15:00 | NUR ---
EDNA CRACKERS, SALTINES AND APPLE JUICE PROVIDED TO PT
--- NOTE | 2019-04-01 15:14 | NUR ---
PT AMBULATORY IN PAULA W/ STEADY GAIT; ACCOMPANIED BACK TO ROOM. PT REQUESTING ADDITIONAL CRACKERS.
== END 2019-04-01 16:00 | disposition home or self-care (01) ==
LOC: ED 15:00
DX: F10.220 Alcohol dependence with intoxication, uncomplicated (principal); F17.200 Nicotine dependence, unspecified, uncomplicated; R51 Headache; I48.92 Unspecified atrial flutter; Y90.0 Blood alcohol level of less than 20 mg/100 ml
CPT/HCPCS: 70450; 99284

== ENCOUNTER 2019-04-02 15:41 | Emergency (ER) | payer MEDICARE, OTHER ==
[~2019-04-02] VITALS: Ht 182.9 cm; Wt 73.0 kg
[~2019-04-02 15:41] MED LIST changes: +ONDA8TAB15 PO; -ONDA8TAB18 PO; +TRAZ-137 PO; -TRAZ-175 PO; +TRAZADONE
--- NOTE | 2019-04-02 15:57 | NUR ---
SEE TRIAGE. PT WANTING TO SLEEP. WARM BLANKET PROVIDED, CALL LIGHT WITHIN REACH.
[2019-04-02 16:33] LABS: BASOPHILS # (AUTO) 0.09 x10^3/uL (0-0.1); BASOPHILS % (AUTO) 1 % (0-1); EOSINOPHILS # (AUTO) 0.04 x10^3/uL (0-0.4); EOSINOPHILS % (AUTO) 0 % (1-7); LYMPHOCYTES # (AUTO) 2.43 x10^3/uL (1-3.4); LYMPHOCYTES % (AUTO) 22 % (22-44); MD NO; MEAN CORPUSCULAR HEMOGLOBIN 26.7 pg (27.5-34.5); MEAN CORPUSCULAR HGB CONC 32.4 g/dL (33.2-36.2); MEAN CORPUSCULAR VOLUME 82.4 fL (81-97); MEAN PLATELET VOLUME 7.2 fL (7.4-10.4); MONOCYTES # (AUTO) 0.52 x10^3/uL (0.2-0.8); MONOCYTES % (AUTO) 5 % (2-9); NEUTROPHILS # (AUTO) 7.82 x10^3/uL (1.8-6.8); NEUTROPHILS % (AUTO) 72 % (42-75); PLATELET COUNT 454 x10^3/uL (130-400); RED BLOOD COUNT 4.82 x10^6/uL (4.38-5.82)
--- NOTE | 2019-04-02 16:42 | NUR ---
PT CONTINUALLY GETTING OOB, ASKING FOR BR AND THEN SOMETHING TO EAT. PT ABLE TO AMBULATE BUT GAIT UNSTEADY. PT REDIRECTED BACK TO BED AND URINAL PROVIDED. PT THEN URINATED ON SELF AND BED, ATTEMPTING TO GET OOB AGAIN. SHEETS CHANGED, CHUX, WARM BLANKET, AND SNACKS PROVIDED.
[2019-04-02 16:45] LABS: ALANINE AMINOTRANSFERASE 31 U/L (12-78); ALBUMIN 3.3 g/dL (3.4-5.0); ANION GAP 12 mmol/L (5-15); CALCIUM 8.4 mg/dL (8.5-10.1); CHLORIDE 99 mmol/L (98-107); CREATININE 0.63 mg/dL (0.7-1.3)
[2019-04-02 16:47] LABS: ALKALINE PHOSPHATASE 84 U/L (45-117); BILIRUBIN,TOTAL 0.2 mg/dL (0.2-1.0); TOTAL PROTEIN 7.5 g/dL (6.4-8.2)
--- NOTE | 2019-04-02 16:58 | NUR ---
REPORT TO RICCARDO GARCIA, TRANSFER OF CARE AT THIS TIME.
--- NOTE | 2019-04-02 17:20 | NUR ---
REPORT FROM JOSE CORDON. PT FREQUENTLY OUT OF BED. ENCOURAGED TO STAY IN BED AND USE CALL LIGHT. PT MAKES FREQUENT REQUESTS FOR FOOD. PO FLUIDS AND NUTRITION PROVIDED. NAD NOTED AT THIS TIME, THOUGH PT REQUIRES FREQUENT DIRECTION TO REMAIN IN ED ROOM RATHER THAN WALKING AROUND THE HALLS.
--- NOTE | 2019-04-02 18:20 | NUR ---
PT LAYING ON SIDE IN BED, NAD NOTED AT THIS TIME. PT ENCOURAGED TO REST BY RN AND SITTER. SITTER OUTSIDE OF ROOM FOR Q15 MIN CHECKS. SIDE RAILS UP, CALL LIGHT IN REACH. PO FLUIDS AVAILABLE AT BEDSIDE.
--- NOTE | 2019-04-02 19:39 | NUR ---
PT ASLEEP ON SIDE IN BED, AWAKENS EASILY. REFUSES TO REMOVE JACKET AT THIS TIME. SPO2 MONITOR IN PLACE. SITTER OUTSIDE OF ROOM FOR Q15 MIN SAFETY CHECKS. NAD NOTED AT THIS TIME.
--- NOTE | 2019-04-02 20:49 | NUR ---
PT ASLEEP IN BED, NAD NOTED AT THIS TIME. AWAITING PT ABILITY TO AMBULATE WELL/SOBER UP. SITTER OUTSIDE OF ROOM FOR Q15 MIN SAFETY CHECKS.
--- NOTE | 2019-04-02 21:48 | NUR ---
PT AMBULATES WELL AROUND ROOM AND DOWN PAULA. GIVEN CHANGE OF UNDERWEAR, REFUSES NEW PANTS. GIVEN ADDITIONAL PO FLUIDS. READY FOR DC.
[2019-04-02 21:59] VITALS: BP 118/53
== END 2019-04-02 22:01 | disposition home or self-care (01) ==
LOC: ED 19:45
DX: F10.220 Alcohol dependence with intoxication, uncomplicated (principal); E87.1 Hypo-osmolality and hyponatremia; F17.200 Nicotine dependence, unspecified, uncomplicated
CPT/HCPCS: 36415; 80053; 80307; 85025; 99283

== ENCOUNTER 2019-05-07 13:02 | Emergency (ER) | payer SELFPAY ==
[~2019-05-07] VITALS: Ht 182.9 cm; Wt 80.0 kg
[~2019-05-07 13:02] MED LIST changes: -ONDA8TAB15 PO; +ONDA8TAB18 PO; -TRAZ-137 PO; +TRAZ-175 PO
[2019-05-07 13:07] VITALS: BP 128/71
[2019-05-07 13:29] LABS: BASOPHILS # (AUTO) 0.04 x10^3/uL (0-0.1); BASOPHILS % (AUTO) 1 % (0-1); EOSINOPHILS # (AUTO) 0.06 x10^3/uL (0-0.4); EOSINOPHILS % (AUTO) 1 % (1-7); LYMPHOCYTES # (AUTO) 1.95 x10^3/uL (1-3.4); LYMPHOCYTES % (AUTO) 25 % (22-44); MD NO; MEAN CORPUSCULAR HEMOGLOBIN 26.7 pg (27.5-34.5); MEAN CORPUSCULAR HGB CONC 32.6 g/dL (33.2-36.2); MEAN CORPUSCULAR VOLUME 81.7 fL (81-97); MEAN PLATELET VOLUME 7.3 fL (7.4-10.4); MONOCYTES # (AUTO) 0.59 x10^3/uL (0.2-0.8); MONOCYTES % (AUTO) 8 % (2-9); NEUTROPHILS # (AUTO) 5.04 x10^3/uL (1.8-6.8); NEUTROPHILS % (AUTO) 66 % (42-75); PLATELET COUNT 290 x10^3/uL (130-400); RED BLOOD COUNT 4.46 x10^6/uL (4.38-5.82); RED CELL DISTRIBUTION WIDTH 17.9 % (9.4-14.8)
[2019-05-07] MEDS ORDERED: THIAMINE 100MG TABLET PO ONE (13:30)
[2019-05-07 13:38] LABS: ALBUMIN 3.3 g/dL (3.4-5.0); ANION GAP 10 mmol/L (5-15); CALCIUM 8.1 mg/dL (8.5-10.1); CHLORIDE 95 mmol/L (98-107)
[2019-05-07] MEDS ORDERED: THIAMINE 100MG TABLET ONE (13:46)
--- NOTE | 2019-05-07 13:50 | NUR ---
PT UP TO THE NURSES STATION X 3, REQUESTING BLANKET PILLOW, 2ND MEAL TRAY, AMBULATING WIH STEAD GAIT
--- NOTE | 2019-05-07 14:00 | NUR ---
PT REFUSING TO LEAVE SO HE CAN SLEEP ESCOTED OUT BY SECURITY
== END 2019-05-07 14:10 | disposition home or self-care (01) ==
LOC: ED 14:00
DX: F10.220 Alcohol dependence with intoxication, uncomplicated (principal); E87.1 Hypo-osmolality and hyponatremia; I10 Essential (primary) hypertension; I48.92 Unspecified atrial flutter; Y90.9 Presence of alcohol in blood, level not specified
CPT/HCPCS: 36415; 71045; 80048; 82040; 85025; 99284

== ENCOUNTER 2020-07-16 00:26 | Emergency (ER) | payer MEDICAID ==
[~2020-07-16] VITALS: Ht 170.2 cm; Wt 85.5 kg
[~2020-07-16 00:26] MED LIST changes: -FOLI-17 PO; +FOLI1TAB32 PO
[2020-07-16 00:28] VITALS: BP 107/62
--- NOTE | 2020-07-16 03:08 | NUR ---
PATIENT WALKED OUT. STATES HE IS NOT COMING BACK.
== END 2020-07-16 03:10 | disposition left against medical advice (07) ==
LOC: ED 00:45
DX: R51.9 Headache, unspecified (principal)
CPT/HCPCS: 99283

== ENCOUNTER 2020-08-19 18:51 | Emergency (ER) | payer MEDICAID ==
[~2020-08-19] VITALS: Ht 180.3 cm; Wt 79.5 kg
[2020-08-19 18:58] VITALS: BP 119/76
--- NOTE | 2020-08-19 19:29 | NUR ---
Pt BIB EMS for n/v/d and rash suspicious for scabies. Upon arrival pt put on contact precautions, pt educated about need for contact precautions and what it entails, iso cart located outside room with contact precaution sign. Comode and urnal placed at bedside and pt connected to BP and O2 monitors. Pt educated that he cannot recieve any medications prior to the provider seeing him, despite his multiple requests for pain meds.
[2020-08-19] MEDS ORDERED: SODIUM CHLORIDE FLUSH 10ML SYR IVF ONE (19:30)
[2020-08-19] MEDS ORDERED: MORPHINE SULFATE 4 MG/ML, 1ML IVPush PRN (19:30)
[2020-08-19] MEDS ORDERED: SODIUM CHLORIDE 0.9% 1,000ML IVBOLUS ONE (19:30)
[2020-08-19] MEDS ORDERED: ONDANSETRON 2MG/ML, 2ML IVPush ONE (19:30)
[2020-08-19 19:43] LABS: BASOPHILS % (AUTO) 1 % (0-1); EOSINOPHILS % (AUTO) 5 % (1-7); LYMPHOCYTES % (AUTO) 30 % (22-44); MEAN CORPUSCULAR HEMOGLOBIN 28.9 pg (27.5-34.5); MEAN CORPUSCULAR HGB CONC 33.5 g/dL (33.2-36.2); MEAN PLATELET VOLUME 7.3 fL (7.4-10.4); MONOCYTES % (AUTO) 11 % (2-9); NEUTROPHILS % (AUTO) 54 % (42-75); PLATELET COUNT 287 x10^3/uL (130-400); RED BLOOD COUNT 4.46 x10^6/uL (4.38-5.82); RED CELL DISTRIBUTION WIDTH 15.8 % (9.4-14.8)
[2020-08-19 19:44] LABS: MD NO
[2020-08-19] MEDS ORDERED: ONDANSETRON 2MG/ML, 2ML ONE (19:52)
[2020-08-19] MEDS ORDERED: MORPHINE SULFATE 4 MG/ML, 1ML ONE (19:52)
[2020-08-19 19:54] LABS: ALANINE AMINOTRANSFERASE 38 U/L (12-78); ALBUMIN 3.5 g/dL (3.4-5.0); ANION GAP 7 mmol/L (5-15); CALCIUM 8.7 mg/dL (8.5-10.1); CHLORIDE 96 mmol/L (98-107); CREATININE 0.67 mg/dL (0.7-1.3)
[2020-08-19 20:04] LABS: ALKALINE PHOSPHATASE 66 U/L (45-117); BILIRUBIN,TOTAL 0.6 mg/dL (0.2-1.0); TOTAL PROTEIN 6.7 g/dL (6.4-8.2); TROPONIN I < 0.015 ng/mL (0.000-0.045)
[2020-08-19 20:25] LABS: MICROSCOPIC NOT IND
[2020-08-19] MEDS ORDERED: DIPHENHYDRAMINE 50 MG/ML, 1ML ONE (20:29)
[2020-08-19] MEDS ORDERED: DIPHENHYDRAMINE 50 MG/ML, 1ML IV ONE (20:30)
--- NOTE | 2020-08-19 20:43 | NUR ---
Pt has made several attempts to provide stool sample, no sucess thus far
--- NOTE | 2020-08-19 22:04 | NUR ---
Pt provided blanket by tech and additonal by rn per request
== END 2020-08-19 22:57 | disposition home or self-care (01) ==
LOC: ED 19:21
DX: B86 Scabies (principal); R19.7 Diarrhea, unspecified; R11.2 Nausea with vomiting, unspecified; R10.9 Unspecified abdominal pain; E87.1 Hypo-osmolality and hyponatremia; I10 Essential (primary) hypertension; I48.92 Unspecified atrial flutter; F17.200 Nicotine dependence, unspecified, uncomplicated
CPT/HCPCS: 36415; 71045; 76870; 80053; 81003; 83690; 84484; 85025; 96361; 96374; 96375; 99285; J1200; J2270; J2405; J7030

== ENCOUNTER 2020-08-27 19:57 | Emergency (ER) | payer MEDICAID ==
[~2020-08-27] VITALS: Ht 180.3 cm; Wt 81.3 kg
[2020-08-27] MEDS ORDERED: ACETAMINOPHEN 500 MG TABLET ONE (20:38)
--- NOTE | 2020-08-27 20:42 | NUR ---
PT MEDICATED PER MAR.
[2020-08-27] MEDS ORDERED: ACETAMINOPHEN 500 MG TABLET PO ONE (21:00)
[2020-08-27 21:10] LABS: MICROSCOPIC INDICATED
[2020-08-27 21:36] LABS: BASOPHILS % (AUTO) 1 % (0-1); EOSINOPHILS % (AUTO) 2 % (1-7); LYMPHOCYTES % (AUTO) 27 % (22-44); MEAN CORPUSCULAR HEMOGLOBIN 29.4 pg (27.5-34.5); MEAN PLATELET VOLUME 7.7 fL (7.4-10.4); MONOCYTES % (AUTO) 9 % (2-9); NEUTROPHILS % (AUTO) 61 % (42-75); PLATELET COUNT 287 x10^3/uL (130-400); RED CELL DISTRIBUTION WIDTH 15.9 % (9.4-14.8)
[2020-08-27 21:44] LABS: ALANINE AMINOTRANSFERASE 31 U/L (12-78); ANION GAP 9 mmol/L (5-15); CALCIUM 8.1 mg/dL (8.5-10.1); CHLORIDE 100 mmol/L (98-107); CREATININE 0.62 mg/dL (0.7-1.3)
[2020-08-27 21:48] LABS: ALKALINE PHOSPHATASE 73 U/L (45-117); BILIRUBIN,TOTAL 0.4 mg/dL (0.2-1.0); TOTAL PROTEIN 6.5 g/dL (6.4-8.2); TROPONIN I < 0.015 ng/mL (0.000-0.045)
[2020-08-27 22:30] VITALS: BP 109/70
== END 2020-08-27 22:32 | disposition home or self-care (01) ==
LOC: ED 20:00
DX: N45.2 Orchitis (principal); N50.812 Left testicular pain; N50.811 Right testicular pain; R07.89 Other chest pain; R94.31 Abnormal electrocardiogram [ECG] [EKG]; Z72.9 Problem related to lifestyle, unspecified; F17.210 Nicotine dependence, cigarettes, uncomplicated; I48.92 Unspecified atrial flutter; I10 Essential (primary) hypertension
CPT/HCPCS: 36415; 71045; 76870; 80053; 80320; 81001; 83690; 84484; 85025; 87491; 87591; 93005; 99285; G0480

== ENCOUNTER 2020-09-09 07:57 | Emergency (ER) | payer MEDICAID ==
[~2020-09-09] VITALS: Ht 182.9 cm; Wt 81.8 kg
[2020-09-09] MEDS ORDERED: LOPERAMIDE 2 MG CAPSULE PO ONE (08:00)
[2020-09-09] MEDS ORDERED: LOPERAMIDE 2 MG CAPSULE ONE (08:06)
--- NOTE | 2020-09-09 08:13 | NUR ---
PT IN THE RESTROOM. UNABLE TO COMPLETE CLINICAL, PHYSICAL, OR TRIAGE ASSESSMENT AT THIS TIME.
[2020-09-09] MEDS ORDERED: PLEASE ENTER HEIGHT AND WEIGHT MC SCH (08:30)
[2020-09-09 08:40] VITALS: BP 145/74
== END 2020-09-09 08:41 | disposition home or self-care (01) ==
LOC: ED 08:26
DX: R19.7 Diarrhea, unspecified (principal); R11.0 Nausea; I10 Essential (primary) hypertension; I48.92 Unspecified atrial flutter
CPT/HCPCS: 99283

== ENCOUNTER 2020-09-09 10:22 | Emergency (ER) | payer MEDICAID ==
[~2020-09-09] VITALS: Ht 182.9 cm; Wt 81.8 kg
[2020-09-09] MEDS ORDERED: ACETAMINOPHEN 325 MG TABLET PO ONE (10:30)
[2020-09-09] MEDS ORDERED: ACETAMINOPHEN 325 MG TABLET ONE (10:35)
--- NOTE | 2020-09-09 10:37 | NUR ---
PT BIB EMS FOR FALL OWN ESCALATOR AT A [facility]AL [facility]. PT C/O LEFT ARM PAIN. PER EMS PT HAS AN ABRASION TO LEFT ELBOW ARM. LEFT ARM BANDAGED. PT ALSO HAS DIARRHEA AND N/V. PT ALSO ADMITS TO DRINKING 3 HURRICANES TODAY WHICH MADE HIS STOMACHE HURT.
[2020-09-09] MEDS ORDERED: BACITRACIN ZINC OINT 500U/GM, 0.9 GM ONE (10:41)
--- NOTE | 2020-09-09 10:50 | NUR ---
PT REPEATEDLY GETTING UP AND WALKING THE HALLS WITH HIS WALKER. PT DEMANDING TO LEAVE TO SMOKE. PT OFFERED NICOTINE PATCH AND DECLINED. SECURITY ESCORTED PT BACK TO ROOM.
--- NOTE | 2020-09-09 11:23 | NUR ---
PT BACK FROM CT
[2020-09-09 11:47] VITALS: BP 136/79
--- NOTE | 2020-09-09 12:57 | NUR ---
TASK RN: PT FOUND WANDERING HALLS REQUESTING TO LEAVE ED, ATTEMPTING TO LEAVE THROUGH AMBULANCE BAY. PER PRIMARY RN PT UP FOR DC. PT DOES NOT WISH TO WAIT FOR DC PPWK. PT AMBULATORY W/ A STEADY GAIT USING HOME WALKER. RESP EVEN AND UNLABORED, MARCIANO.
== END 2020-09-09 13:00 | disposition home or self-care (01) ==
LOC: ED 10:43
DX: S80.812A Abrasion, left lower leg, initial encounter (principal); S09.90XA Unspecified injury of head, initial encounter; R11.2 Nausea with vomiting, unspecified; R19.7 Diarrhea, unspecified; W10.0XXA Fall (on)(from) escalator, initial encounter; Y93.89 Activity, other specified; Y92.89 Other specified places as the place of occurrence of the external cause; Y99.8 Other external cause status
CPT/HCPCS: 70450; 99284

== ENCOUNTER 2020-09-13 12:25 | Emergency (ER) | payer MEDICAID, MEDICARE ==
[~2020-09-13] VITALS: Ht 182.9 cm; Wt 77.0 kg
--- NOTE | 2020-09-13 12:32 | NUR ---
TASK RN: 69 YR OLD MALE ARRIVED VIA EMS. PER REPORT PT WITH N/V/D X4 DAYS WITH "DK RED BLOOD IN VOMIT AND DIARRHEA" PT STATES "HAVE BEEN THROWING UP FOR 7 DAYS AND DIARRHEA OFF AND ON FOR 10 DAYS. MY THROAT HURTS FROM THROWING UP". PT STATES "I HAD 2 HURRICANE TALL BOYS TODAY" PT WITH MULTIPLE SORES/SCABS TO LEFT ARM/SHOULDER AND BACK "ITS FROM THE SUN" PT PICKING AT SCABS AT TIMES "OWW" JAMES ARELLANO IN TO JOEL PT. REPORT TO MERLYN GARCIA.
[2020-09-13 12:45] LABS: BASOPHILS % (AUTO) 0 % (0-1); EOSINOPHILS % (AUTO) 0 % (1-7); LYMPHOCYTES % (AUTO) 6 % (22-44); MEAN CORPUSCULAR HEMOGLOBIN 28.6 pg (27.5-34.5); MEAN CORPUSCULAR HGB CONC 33.6 g/dL (33.2-36.2); MONOCYTES % (AUTO) 12 % (2-9); NEUTROPHILS % (AUTO) 82 % (42-75); PLATELET COUNT 295 x10^3/uL (130-400); RED BLOOD COUNT 4.48 x10^6/uL (4.38-5.82); RED CELL DISTRIBUTION WIDTH 17.1 % (9.4-14.8)
[2020-09-13 12:57] LABS: ALANINE AMINOTRANSFERASE 19 U/L (12-78); ALBUMIN 2.6 g/dL (3.4-5.0); ANION GAP 16 mmol/L (5-15); CALCIUM 8.1 mg/dL (8.5-10.1); CHLORIDE 86 mmol/L (98-107); CREATININE 0.72 mg/dL (0.7-1.3)
[2020-09-13 12:59] LABS: ALKALINE PHOSPHATASE 63 U/L (45-117); BILIRUBIN,TOTAL 0.5 mg/dL (0.2-1.0); TOTAL PROTEIN 6.6 g/dL (6.4-8.2)
[2020-09-13] MEDS ORDERED: SODIUM CHLORIDE 0.9% 1,000ML IVBOLUS ONE ×2 (13:00→14:30)
[2020-09-13] MEDS ORDERED: ONDANSETRON 2MG/ML, 2ML IVPush ONE (13:00)
[2020-09-13] MEDS ORDERED: FAMOTIDINE 20 MG/2 ML IVPush ONE (13:00)
[2020-09-13] MEDS ORDERED: ONDANSETRON 2MG/ML, 2ML ONE (13:03)
[2020-09-13] MEDS ORDERED: FAMOTIDINE 20 MG/2 ML ONE (13:04)
--- NOTE | 2020-09-13 13:13 | NUR ---
PIV ATTEMPTED, INITIAL POKE HAD FLASH OF BLOOD BUT WHEN ADVANCING PT MOVED D/T BACK PAIN. WHILE SEARCHING FOR ANOTHER POTENTIAL SITE PT REPORTS, "I FEEL LIKE IM GOING TO BE SICK." SITS UP AND THEN STICKS HIS FINGER DOWN HIS THROAT. PT IS VERY REPETITIVE, IS TOLD POC AND ASK SAME QUESTIONS RIGHT AFTER. ANOTHER RN IS ATTEMPTING TO HELP W/ IV NOW.
--- NOTE | 2020-09-13 13:25 | NUR ---
PT MEDICATED PER MAY. BREAK RN UPDATED.
[2020-09-13] MEDS ORDERED: POTASSIUM CHLORIDE 20 MEQ TAB.ER.PRT PO ONE (13:30)
[2020-09-13] MEDS ORDERED: POTASSIUM CHLORIDE 40 MEQ in SODIUM CHLORIDE 0.9% 500 ML IV ONE (13:30)
[2020-09-13] MEDS ORDERED: POTASSIUM CHLORIDE 20 MEQ TAB.ER.PRT ONE (14:01)
--- NOTE | 2020-09-13 14:05 | NUR ---
RECEIVED UPDATE FROM BREAK RN. ALL TASK COMPLETED FOR PT, NO NEEDS. EKG CURRENTLY BEING PERFORMED.
--- NOTE | 2020-09-13 15:01 | NUR ---
MD NOTIFIED OF CHALLENGE W/ PT FOR IV AND DELAY IN IV BOLUS.
--- NOTE | 2020-09-13 15:42 | NUR ---
PT PIV STARTED, IVF RECONNECTED. CURRENTLY RESUMING FIRST BOLUS.
--- NOTE | 2020-09-13 15:43 | NUR ---
REQUESTED LAB COME BACK IN 1 HR
--- NOTE | 2020-09-13 16:16 | NUR ---
PT RESTING IN GURNEY, VSS, NADN. CALL LIGHT W/IN REACH. PT VOIDED 300 IN URINAL. PA NOTIFIED PT 2ND BOLUS STARTED AND LAB WAS DELAYED.
[2020-09-13 17:23] LABS: ALANINE AMINOTRANSFERASE 16 U/L (12-78); ALBUMIN 2.5 g/dL (3.4-5.0); ANION GAP 10 mmol/L (5-15); CALCIUM 7.5 mg/dL (8.5-10.1); CHLORIDE 96 mmol/L (98-107); CREATININE 0.53 mg/dL (0.7-1.3)
[2020-09-13 17:25] LABS: ALKALINE PHOSPHATASE 55 U/L (45-117); BILIRUBIN,TOTAL 0.5 mg/dL (0.2-1.0); TOTAL PROTEIN 6.5 g/dL (6.4-8.2)
--- NOTE | 2020-09-13 18:46 | NUR ---
Patient given discharge instructions and they have confirmed that they understand the instructions. Patient ambulatory with steady gait using fww. Addendum: 09/13/20 at 1848 by BOB PT PROVIDED BUS PASS PER BREANA
[2020-09-13 18:48] VITALS: BP 155/80
== END 2020-09-13 18:50 | disposition home or self-care (01) ==
LOC: ED 12:52
DX: F10.220 Alcohol dependence with intoxication, uncomplicated (principal); E87.6 Hypokalemia; E87.1 Hypo-osmolality and hyponatremia; F17.210 Nicotine dependence, cigarettes, uncomplicated; R00.0 Tachycardia, unspecified; I48.92 Unspecified atrial flutter; I10 Essential (primary) hypertension; Y90.0 Blood alcohol level of less than 20 mg/100 ml
CPT/HCPCS: 36415; 80053; 83690; 85025; 93005; 96361; 96365; 96375; 99285; 99406; J2405; J3480; J7030; J7040

== ENCOUNTER 2020-09-24 12:59 | Emergency (ER) | payer MEDICAID ==
[~2020-09-24] VITALS: Ht 182.9 cm; Wt 71.0 kg
[2020-09-24 13:53] LABS: BASOPHILS % (AUTO) 1 % (0-1); EOSINOPHILS % (AUTO) 0 % (1-7); LYMPHOCYTES % (AUTO) 32 % (22-44); MEAN CORPUSCULAR HEMOGLOBIN 28.1 pg (27.5-34.5); MEAN CORPUSCULAR HGB CONC 33.5 g/dL (33.2-36.2); MONOCYTES % (AUTO) 11 % (2-9); NEUTROPHILS % (AUTO) 55 % (42-75); PLATELET COUNT 690 x10^3/uL (130-400); RED BLOOD COUNT 4.11 x10^6/uL (4.38-5.82); RED CELL DISTRIBUTION WIDTH 17.6 % (9.4-14.8)
[2020-09-24 13:54] LABS: ALANINE AMINOTRANSFERASE 36 U/L (12-78); ALBUMIN 2.7 g/dL (3.4-5.0); ANION GAP 8 mmol/L (5-15); CALCIUM 8.5 mg/dL (8.5-10.1); CHLORIDE 100 mmol/L (98-107)
[2020-09-24 13:58] LABS: ALKALINE PHOSPHATASE 78 U/L (45-117); BILIRUBIN,TOTAL 0.5 mg/dL (0.2-1.0); TROPONIN I < 0.015 ng/mL (0.000-0.045)
[2020-09-24 14:05] LABS: TOTAL PROTEIN 7.4 g/dL (6.4-8.2)
[2020-09-24] MEDS ORDERED: THIAMINE 100MG TABLET PO ONE (15:00)
[2020-09-24] MEDS ORDERED: THIAMINE 100MG TABLET ONE (15:15)
[2020-09-24] MEDS ORDERED: ACETAMINOPHEN 500 MG TABLET ONE (15:15)
[2020-09-24] MEDS ORDERED: ACETAMINOPHEN 500 MG TABLET PO ONE (15:30)
--- NOTE | 2020-09-24 15:31 | NUR ---
PT REMOVED ALL MONITORING EQUIPMENT
[2020-09-24 15:48] VITALS: BP 101/51
== END 2020-09-24 16:32 | disposition home or self-care (01) ==
LOC: ED 13:55
DX: S09.90XA Unspecified injury of head, initial encounter (principal); R07.2 Precordial pain; R10.84 Generalized abdominal pain; R20.2 Paresthesia of skin; F10.20 Alcohol dependence, uncomplicated; Y90.0 Blood alcohol level of less than 20 mg/100 ml; Z72.9 Problem related to lifestyle, unspecified; I10 Essential (primary) hypertension; F17.200 Nicotine dependence, unspecified, uncomplicated; X58.XXXA Exposure to other specified factors, initial encounter; Y93.89 Activity, other specified; Y92.89 Other specified places as the place of occurrence of the external cause; Y99.8 Other external cause status
CPT/HCPCS: 36415; 70450; 71045; 80053; 83690; 84484; 85025; 93005; 99285

== ENCOUNTER 2020-09-25 11:45 | Emergency (ER) | payer MEDICAID ==
[~2020-09-25] VITALS: Ht 182.9 cm; Wt 67.6 kg
--- NOTE | 2020-09-25 11:58 | NUR ---
PT ASKING FOR "A ROOM UPSTAIRS"; STATES "I JUST WANT TO SLEEP". PT HOMELESS. PT SEEN AT [facility] YESTERDAY. MULTIPLE GENERAL COMPLAINTS. SCABBED ABRASION TO LT UPPER ARM POSTERIOR. PT SEMI-COOPERATIVE DURING ASSESSEMENT
[2020-09-25 12:01] VITALS: BP 101/60
--- NOTE | 2020-09-25 12:01 | NUR ---
SIDE RAILS UP X2, CALL LIGHT W/IN REACH. BROUGHT TO ED (PER SUZE) W/ RENOWN WHEELCHAIR.
--- NOTE | 2020-09-25 12:19 | NUR ---
PT REPORT TO LEN ALLAN RN. PT CARE TRANSFERRED.
[2020-09-25 13:02] LABS: TROPONIN I < 0.015 ng/mL (0.000-0.045)
== END 2020-09-25 13:27 | disposition home or self-care (01) ==
LOC: ED 12:00
DX: R10.84 Generalized abdominal pain (principal); R07.89 Other chest pain; F10.20 Alcohol dependence, uncomplicated; Y90.0 Blood alcohol level of less than 20 mg/100 ml; Z72.9 Problem related to lifestyle, unspecified; I10 Essential (primary) hypertension; F17.200 Nicotine dependence, unspecified, uncomplicated
CPT/HCPCS: 36415; 84484; 93005; 99284

== ENCOUNTER 2020-10-09 22:47 | Observation (INO) | payer MEDICARE, MEDICAID ==
[~2020-10-09] VITALS: Ht 175.3 cm; Wt 75.0 kg
[2020-10-09] MEDS ORDERED: MAALOX/HYOSCYAMINE/LIDOCAINE 45 ML BTL ONE (23:17)
[2020-10-09] MEDS ORDERED: FAMOTIDINE 20 MG/2 ML ONE (23:19)
[2020-10-09] MEDS ORDERED: MAALOX/HYOSCYAMINE/LIDOCAINE 45 ML BTL PO ONE (23:30)
[2020-10-09] MEDS ORDERED: FAMOTIDINE 20 MG/2 ML IVPush ONE (23:30)
[2020-10-09] MEDS ORDERED: SODIUM CHLORIDE 0.9% 1,000ML IVBOLUS ONE (23:30)
[2020-10-09 23:41] LABS: BASOPHILS % (AUTO) 1 % (0-1); EOSINOPHILS % (AUTO) 0 % (1-7); LYMPHOCYTES % (AUTO) 37 % (22-44); MEAN CORPUSCULAR HEMOGLOBIN 27.7 pg (27.5-34.5); MEAN CORPUSCULAR HGB CONC 33.3 g/dL (33.2-36.2); MEAN PLATELET VOLUME 7.4 fL (7.4-10.4); MONOCYTES % (AUTO) 14 % (2-9); NEUTROPHILS % (AUTO) 47 % (42-75); PLATELET COUNT 277 x10^3/uL (130-400); RED CELL DISTRIBUTION WIDTH 19.1 % (9.4-14.8)
[2020-10-09 23:50] LABS: ALANINE AMINOTRANSFERASE 29 U/L (12-78); ALBUMIN 2.6 g/dL (3.4-5.0); ANION GAP 10 mmol/L (5-15); CALCIUM 7.9 mg/dL (8.5-10.1); CHLORIDE 103 mmol/L (98-107); CREATININE 0.68 mg/dL (0.7-1.3)
[2020-10-09 23:52] LABS: ALKALINE PHOSPHATASE 72 U/L (45-117); BILIRUBIN,TOTAL 0.4 mg/dL (0.2-1.0); TOTAL PROTEIN 6.2 g/dL (6.4-8.2)
[2020-10-10] MEDS ORDERED: CALCIUM CARBONATE 500 MG TAB.CHEW PO ONE
[2020-10-10] MEDS ORDERED: POTASSIUM CHLORIDE 20 MEQ TAB.ER.PRT PO ONE
--- NOTE | 2020-10-10 00:06 | NUR ---
Pt brought in by EMS from group home, c/o LUQ abdominal pain, N/V/D. Per EMS, pt states he feels sick and needs a place to sleep. Asking for call marrufo, TV remote, and for lights to be dimmed. Pt was hypotensive w/ EMS, SBP in 80's, IV started, was given 4mg IV Zofran and 300mL NSS, BP went up to SBP >90. Pt clearly intoxicated, endorses drinking multiple beers, pt smells of alcohol and urine.
[2020-10-10] MEDS ORDERED: DICYCLOMINE 10 MG/ML, 2ML ONE (00:45)
[2020-10-10] MEDS ORDERED: POTASSIUM CHLORIDE 20 MEQ TAB.ER.PRT ONE (00:45)
[2020-10-10] MEDS ORDERED: CALCIUM CARBONATE 500 MG TAB.CHEW ONE (00:45)
[2020-10-10] MEDS ORDERED: DICYCLOMINE 10 MG/ML, 2ML IM ONE (01:00)
--- NOTE | 2020-10-10 02:12 | NUR ---
Covering primary for break, pt RR equal and unlabored. Will continue to monitor.
--- NOTE | 2020-10-10 02:24 | NUR ---
Sleeping, on cont pulse ox, RR equal and unlabored. Will continue to monitor.
--- NOTE | 2020-10-10 04:40 | NUR ---
Pt sleeping comfortably, will discharge when pt is clinically sober and safe for discharge.
--- NOTE | 2020-10-10 05:11 | NUR ---
Pt given snacks, water, PIV removed, discharge paperwork given to pt. Pt ambulated w/ steady gait into personal wheelkchair, given bus pas. Pt wheeled himself out of ED to bus station.
[2020-10-10 05:13] VITALS: BP 118/70
== END 2020-10-10 05:15 | disposition home or self-care (01) ==
LOC: ED 10-10 00:05 → EDIP 10-10 02:44
PROVIDERS: ADMIT Emergency Medicine; ATTEND Emergency Medicine
DX: R10.9 Unspecified abdominal pain (principal); F10.20 Alcohol dependence, uncomplicated; E87.6 Hypokalemia; E83.51 Hypocalcemia; I10 Essential (primary) hypertension; F17.200 Nicotine dependence, unspecified, uncomplicated; Z63.8 Other specified problems related to primary support group
CPT/HCPCS: 36415; 80053; 80320; 83690; 85025; 96361; 96372; 96374; 99284; G0378; J0500; J7030; G0480

== ENCOUNTER 2020-10-31 12:39 | Inpatient (IN) | payer MEDICARE, MEDICAID ==
[~2020-10-31] VITALS: Ht 182.9 cm; Wt 71.8 kg
[2020-10-31 14:11] LABS: BASOPHILS % (AUTO) 0 % (0-1); EOSINOPHILS % (AUTO) 0 % (1-7); LYMPHOCYTES % (AUTO) 3 % (22-44); MEAN CORPUSCULAR HEMOGLOBIN 26.7 pg (27.5-34.5); MEAN CORPUSCULAR HGB CONC 32.6 g/dL (33.2-36.2); MEAN PLATELET VOLUME 7.6 fL (7.4-10.4); MONOCYTES % (AUTO) 8 % (2-9); NEUTROPHILS % (AUTO) 88 % (42-75); PLATELET COUNT 211 x10^3/uL (130-400); RED BLOOD COUNT 4.03 x10^6/uL (4.38-5.82); RED CELL DISTRIBUTION WIDTH 18.7 % (9.4-14.8)
--- NOTE | 2020-10-31 14:14 | NUR ---
PT BIB EMS AFTER BEING FOUND LAYING ON THE CORNER OF 6TH AND 4TH. PT WAS COVERED IN FLIES AND WAS TAKEN TO DECON. PT INCONINTENENT OF BOWEL AND URINE. PT CLEANED. RESTING IN GURNEY. BLANKETS PROVIDED
[2020-10-31 14:27] LABS: ALBUMIN 1.8 g/dL (3.4-5.0); ANION GAP 11 mmol/L (5-15); CALCIUM 8.1 mg/dL (8.5-10.1); CHLORIDE 102 mmol/L (98-107)
[2020-10-31 14:32] LABS: ALANINE AMINOTRANSFERASE 67 U/L (12-78); ALKALINE PHOSPHATASE 99 U/L (45-117); CREATININE 0.64 mg/dL (0.7-1.3); TOTAL PROTEIN 5.6 g/dL (6.4-8.2)
[2020-10-31] MEDS ORDERED: MAGNESIUM SULFATE 1 GM in SODIUM CHLORIDE 0.9% 50 ML IV ONE (15:00)
[2020-10-31] MEDS ORDERED: POTASSIUM CHLORIDE 10% 40 MEQ/30 ML UDC PO ONE (15:00)
[2020-10-31] MEDS ORDERED: CHLORDIAZEPOXIDE 25 MG CAPSULE PO SCH (15:30)
[2020-10-31] MEDS ORDERED: HEPARIN 5,000 UNITS/ML, 1ML SQ SCH (15:30)
[2020-10-31] MEDS ORDERED: ACETAMINOPHEN 325 MG TABLET ONE (15:30)
[2020-10-31] MEDS ORDERED: POTASSIUM CHLORIDE 40 MEQ in SODIUM CHLORIDE 0.9% 1,000 ML IV ONE (15:30)
[2020-10-31] MEDS ORDERED: POLYETHYLENE GLYCOL 17 GM PACKET PO PRN (15:30)
[2020-10-31] MEDS ORDERED: ENALAPRILAT 1.25 MG/ML, 2ML IVPush PRN (15:30)
[2020-10-31] MEDS: ACETAMINOPHEN 325 MG TABLET PO PRN ×2 (15:47→20:21)
[2020-10-31] MEDS ORDERED: SODIUM CHLORIDE 0.9% 1,000ML IVBOLUS ONE (16:00)
[2020-10-31] MEDS ORDERED: VANCOMYCIN PER PHARMACY MC PRN (16:00)
[2020-10-31 16:19] LABS: HCT (SEDRATE) 34.1 % (39.2-51.8)
[2020-10-31] MEDS ORDERED: NS + 40MEQ KCL 1,000 ML IV ONE (16:26)
[2020-10-31] MEDS ORDERED: PIPERACILLIN/TAZO 4.5 GM in SODIUM CHLORIDE 0.9% 100 ML IVPB SCH (17:00)
[2020-10-31] MEDS ORDERED: CHLORDIAZEPOXIDE 25 MG CAPSULE PO PRN (17:00)
--- NOTE | 2020-10-31 17:19 | NUR ---
ORDERED LIBRIUM, ZOSYN, AND PO POTASSIUM FROM PHARMACY [facility] 1HOUR AGO. STILL HASNT ARRIVED TO ER. PHARMACY CALLED AND NOTIFIED. PT READY TO TRANSFER TO FLOOR AT THIS TIME
[2020-10-31] MEDS ORDERED: PHARMACOKINETIC MONITORING MC PRN (18:00)
[2020-10-31] MEDS ORDERED: PHARMACOKINETIC CONSULTATION MC ONE (18:00)
[2020-10-31] MEDS: D5%-0.45% NACL 1,000 ML IV SCH (18:28)
[2020-10-31] MEDS ORDERED: VANCOMYCIN 1,800 MG in SODIUM CHLORIDE 0.9% 250 ML IV ONE (18:30)
[2020-10-31] MEDS: PIPERACILLIN/TAZO 4.5 GM in SODIUM CHLORIDE 0.9% 100 ML IVPB SCH (18:37)
[2020-10-31 19:15] VITALS: BP 120/68
[2020-10-31 20:32] VITALS: BP 135/89
[2020-10-31] MEDS: MELATONIN 5 MG TABLET PO PRN (22:00)
[2020-10-31] MEDS: POTASSIUM CHLORIDE 20 MEQ, MAGNESIUM SULFATE 2 GM, THIAMINE 200 MG, MVI ADULT 10 ML, FO... IV SCH (22:22)
[2020-10-31 22:38] LABS: AMPHETAMINE SCREEN, URINE Negative (Negative); BARBITURATE SCREEN, URINE Negative (Negative); BENZODIAZEPINE SCREEN, URINE Positive (Negative); CANNABINOID SCREEN, URINE Negative (Negative); COCAINE SCREEN, URINE Negative (Negative); METHADONE SCREEN, URINE Negative (Negative); OPIATE SCREEN, URINE Negative (Negative)
[2020-11-01 00:09] VITALS: BP 114/70
[2020-11-01] MEDS: PIPERACILLIN/TAZO 4.5 GM in SODIUM CHLORIDE 0.9% 100 ML IVPB SCH ×3 (00:16→12:07)
[2020-11-01] MEDS: ACETAMINOPHEN 325 MG TABLET PO PRN ×5 (01:04→23:52)
[2020-11-01] MEDS: D5%-0.45% NACL 1,000 ML IV SCH ×2 (04:39→16:26)
[2020-11-01 07:41] LABS: BASOPHILS % (AUTO) 0 % (0-1); EOSINOPHILS % (AUTO) 1 % (1-7); LYMPHOCYTES % (AUTO) 9 % (22-44); MEAN CORPUSCULAR HEMOGLOBIN 27.2 pg (27.5-34.5); MEAN CORPUSCULAR HGB CONC 32.9 g/dL (33.2-36.2); MEAN PLATELET VOLUME 7.9 fL (7.4-10.4); MONOCYTES % (AUTO) 11 % (2-9); NEUTROPHILS % (AUTO) 79 % (42-75); PLATELET COUNT 190 x10^3/uL (130-400); RED BLOOD COUNT 3.39 x10^6/uL (4.38-5.82); RED CELL DISTRIBUTION WIDTH 18.6 % (9.4-14.8)
[2020-11-01 07:44] LABS: CHLORIDE 106 mmol/L (98-107)
[2020-11-01 07:53] LABS: ALANINE AMINOTRANSFERASE 51 U/L (12-78); ALBUMIN 1.5 g/dL (3.4-5.0); ALKALINE PHOSPHATASE 64 U/L (45-117); ANION GAP 6 mmol/L (5-15); BILIRUBIN,TOTAL 1.1 mg/dL (0.2-1.0); CALCIUM 7.3 mg/dL (8.5-10.1); CREATININE 0.51 mg/dL (0.7-1.3); TOTAL PROTEIN 4.8 g/dL (6.4-8.2)
[2020-11-01 08:01] VITALS: BP 112/71
[2020-11-01] MEDS: POTASSIUM CHLORIDE 20 MEQ TAB.ER.PRT PO SCH ×2 (11:56→17:54)
[2020-11-01] MEDS: K-PHOS NEUTRAL 250MG TAB PO SCH ×2 (11:56→19:57)
[2020-11-01] MEDS: VANCOMYCIN 1,400 MG in SODIUM CHLORIDE 0.9% 250 ML IV SCH (11:59)
[2020-11-01 12:38] VITALS: BP 106/63
[2020-11-01] MEDS: PIPERACILLIN/TAZO 4.5 GM in DEXTROSE 5% 100 ML IVPB SCH (18:00)
[2020-11-01 19:02] VITALS: BP 100/60
[2020-11-01] MEDS: MELATONIN 5 MG TABLET PO PRN (19:57)
[2020-11-01] MEDS: POTASSIUM CHLORIDE 20 MEQ, MAGNESIUM SULFATE 2 GM, THIAMINE 200 MG, MVI ADULT 10 ML, FO... IV SCH (21:38)
[2020-11-02] MEDS: PIPERACILLIN/TAZO 4.5 GM in DEXTROSE 5% 100 ML IVPB SCH ×4 (00:58→21:24)
[2020-11-02 02:57] VITALS: BP 110/62
[2020-11-02 07:52] VITALS: BP 148/87
[2020-11-02] MEDS: POTASSIUM CHLORIDE 20 MEQ TAB.ER.PRT PO SCH ×2 (08:00→16:26)
[2020-11-02] MEDS: K-PHOS NEUTRAL 250MG TAB PO SCH ×2 (08:54→21:00)
[2020-11-02] MEDS: VANCOMYCIN 1,400 MG in SODIUM CHLORIDE 0.9% 250 ML IV SCH (13:24)
[2020-11-02 13:45] VITALS: BP 144/76
[2020-11-02 14:09] LABS: BASOPHILS % (AUTO) 0 % (0-1); EOSINOPHILS % (AUTO) 5 % (1-7); LYMPHOCYTES % (AUTO) 14 % (22-44); MEAN CORPUSCULAR HEMOGLOBIN 26.8 pg (27.5-34.5); MEAN CORPUSCULAR HGB CONC 32.4 g/dL (33.2-36.2); MEAN PLATELET VOLUME 7.5 fL (7.4-10.4); MONOCYTES % (AUTO) 8 % (2-9); NEUTROPHILS % (AUTO) 73 % (42-75); PLATELET COUNT 243 x10^3/uL (130-400); RED BLOOD COUNT 3.72 x10^6/uL (4.38-5.82); RED CELL DISTRIBUTION WIDTH 18.9 % (9.4-14.8)
[2020-11-02 14:23] LABS: ALBUMIN 1.5 g/dL (3.4-5.0); ANION GAP 7 mmol/L (5-15); CALCIUM 7.2 mg/dL (8.5-10.1); CHLORIDE 109 mmol/L (98-107)
[2020-11-02 14:29] LABS: ALANINE AMINOTRANSFERASE 43 U/L (12-78); ALKALINE PHOSPHATASE 77 U/L (45-117); BILIRUBIN,TOTAL 0.7 mg/dL (0.2-1.0); CREATININE 0.34 mg/dL (0.7-1.3); TOTAL PROTEIN 4.8 g/dL (6.4-8.2)
[2020-11-02] MEDS: D5%-0.45% NACL 1,000 ML IV SCH (14:43)
[2020-11-02] MEDS ORDERED: CHLORHEXIDINE 15 ML UDC ONE (17:21)
[2020-11-02] MEDS ORDERED: MIDAZOLAM 1 MG/ML, 2ML ONE (18:27)
[2020-11-02] MEDS ORDERED: PROPOFOL 10 MG/ML, 20ML ONE (18:35)
[2020-11-02] MEDS ORDERED: ONDANSETRON 2MG/ML, 2ML ONE (18:35)
[2020-11-02] MEDS ORDERED: SUCCINYLCHOLINE 20 MG/ML, 10ML ONE (18:35)
[2020-11-02] MEDS ORDERED: DEXAMETHASONE 4 MG/ML, 1ML ONE (18:35)
[2020-11-02] MEDS ORDERED: FENTANYL PF 250 MCG/5ML ONE (18:36)
[2020-11-02] MEDS ORDERED: ACETAMINOPHEN 325 MG TABLET PO PRN (19:00)
[2020-11-02] MEDS ORDERED: OXYcodone 5 MG/5 ML ORAL.SOL UDC PO PRN (19:00)
[2020-11-02] MEDS ORDERED: KETOROLAC 30 MG/1 ML IV PRN (19:00)
[2020-11-02] MEDS ORDERED: HYDROmorphone 2 MG/ML, 1ML IVPush PRN (19:00)
[2020-11-02] MEDS ORDERED: FENTANYL PF 100 MCG/2ML IV PRN (19:00)
[2020-11-02] MEDS ORDERED: LABETALOL 5MG/ML, 20ML IV PRN (19:00)
[2020-11-02] MEDS ORDERED: DIAZEPAM 5 MG/ML, 2ML IVPush PRN (19:00)
[2020-11-02] MEDS ORDERED: MEPERIDINE/PF 25MG/0.5ML IVPush PRN (19:00)
[2020-11-02] MEDS ORDERED: hydrALAzine 20 MG/ML, 1ML IV PRN (19:00)
[2020-11-02] MEDS ORDERED: PROMETHAZINE 25 MG/ML, 1ML IV PRN (19:00)
[2020-11-02] MEDS ORDERED: ALBUTEROL SULFATE 2.5 MG/3 ML NPPB PRN (19:00)
[2020-11-02] MEDS ORDERED: PROMETHAZINE 25 MG/ML, 1ML ONE (19:20)
[2020-11-02] MEDS ORDERED: FENTANYL PF 100 MCG/2ML ONE (19:55)
[2020-11-02 20:53] VITALS: BP 136/79
[2020-11-02] MEDS: POTASSIUM CHLORIDE 20 MEQ, MAGNESIUM SULFATE 2 GM, THIAMINE 200 MG, MVI ADULT 10 ML, FO... IV SCH (22:38)
[2020-11-03] MEDS: MELATONIN 5 MG TABLET PO PRN ×2 (00:18→19:25)
[2020-11-03] MEDS: ACETAMINOPHEN 325 MG TABLET PO PRN ×4 (00:18→19:25)
[2020-11-03 02:30] VITALS: BP 132/79
[2020-11-03] MEDS: PIPERACILLIN/TAZO 4.5 GM in DEXTROSE 5% 100 ML IVPB SCH ×4 (03:20→22:04)
[2020-11-03] MEDS: D5%-0.45% NACL 1,000 ML IV SCH ×2 (05:22→15:51)
[2020-11-03 06:29] LABS: BASOPHILS % (AUTO) 0 % (0-1); EOSINOPHILS % (AUTO) 0 % (1-7); LYMPHOCYTES % (AUTO) 8 % (22-44); MEAN CORPUSCULAR HGB CONC 32.9 g/dL (33.2-36.2); MEAN PLATELET VOLUME 7.8 fL (7.4-10.4); MONOCYTES % (AUTO) 2 % (2-9); NEUTROPHILS % (AUTO) 90 % (42-75); PLATELET COUNT 303 x10^3/uL (130-400); RED BLOOD COUNT 4.02 x10^6/uL (4.38-5.82); RED CELL DISTRIBUTION WIDTH 18.5 % (9.4-14.8)
[2020-11-03 06:41] LABS: CHLORIDE 106 mmol/L (98-107)
[2020-11-03 06:50] LABS: ALANINE AMINOTRANSFERASE 41 U/L (12-78); ALBUMIN 1.4 g/dL (3.4-5.0); ALKALINE PHOSPHATASE 84 U/L (45-117); ANION GAP 6 mmol/L (5-15); BILIRUBIN,TOTAL 0.5 mg/dL (0.2-1.0); CALCIUM 7.7 mg/dL (8.5-10.1); CREATININE 0.34 mg/dL (0.7-1.3)
[2020-11-03] MEDS: POTASSIUM CHLORIDE 20 MEQ TAB.ER.PRT PO SCH ×2 (08:00→17:46)
[2020-11-03] MEDS: K-PHOS NEUTRAL 250MG TAB PO SCH ×2 (08:40→21:00)
[2020-11-03 09:51] VITALS: BP 131/73
[2020-11-03] MEDS ORDERED: POTASSIUM CHLORIDE 20 MEQ TAB.ER.PRT PO ONE (12:30)
[2020-11-03 12:49] VITALS: BP 99/59
[2020-11-03] MEDS: VANCOMYCIN 1,400 MG in SODIUM CHLORIDE 0.9% 250 ML IV SCH (12:54)
[2020-11-03 19:33] VITALS: BP 146/89
[2020-11-03] MEDS: ONDANSETRON 2MG/ML, 2ML IVPush PRN (22:09)
[2020-11-03] MEDS: POTASSIUM CHLORIDE 20 MEQ, MAGNESIUM SULFATE 2 GM, THIAMINE 200 MG, MVI ADULT 10 ML, FO... IV SCH (22:41)
[2020-11-04 00:53] VITALS: BP 152/98
[2020-11-04] MEDS ORDERED: DIPHENHYDRAMINE 50 MG/ML, 1ML IVPush ONE (01:00)
[2020-11-04] MEDS: BENZONATATE 100 MG CAPSULE PO PRN ×2 (01:07→15:52)
[2020-11-04] MEDS: PIPERACILLIN/TAZO 4.5 GM in DEXTROSE 5% 100 ML IVPB SCH ×4 (04:24→22:40)
[2020-11-04] MEDS: VANCOMYCIN 1,400 MG in SODIUM CHLORIDE 0.9% 250 ML IV SCH (06:05)
[2020-11-04 08:00] VITALS: BP_SYST 157; BP_SYST 162; BP_DIAS 100; BP_DIAS 88
[2020-11-04] MEDS: K-PHOS NEUTRAL 250MG TAB PO SCH ×2 (09:07→20:45)
[2020-11-04] MEDS: POTASSIUM CHLORIDE 20 MEQ TAB.ER.PRT PO SCH ×2 (09:07→15:52)
[2020-11-04 12:28] LABS: BASOPHILS % (AUTO) 0 % (0-1); EOSINOPHILS % (AUTO) 1 % (1-7); LYMPHOCYTES % (AUTO) 13 % (22-44); MEAN CORPUSCULAR HEMOGLOBIN 27.1 pg (27.5-34.5); MEAN CORPUSCULAR HGB CONC 32.7 g/dL (33.2-36.2); MEAN PLATELET VOLUME 7.5 fL (7.4-10.4); MONOCYTES % (AUTO) 6 % (2-9); NEUTROPHILS % (AUTO) 80 % (42-75); PLATELET COUNT 356 x10^3/uL (130-400); RED CELL DISTRIBUTION WIDTH 18.5 % (9.4-14.8)
[2020-11-04 12:43] LABS: ANION GAP 7 mmol/L (5-15); CALCIUM 8.1 mg/dL (8.5-10.1); CHLORIDE 108 mmol/L (98-107); CREATININE 0.47 mg/dL (0.7-1.3)
[2020-11-04 15:05] VITALS: BP 143/82
[2020-11-04] MEDS: ACETAMINOPHEN 325 MG TABLET PO PRN (15:52)
[2020-11-04] MEDS: ONDANSETRON 2MG/ML, 2ML IVPush PRN (18:20)
[2020-11-04 20:43] VITALS: BP 169/87
[2020-11-04] MEDS: TEMAZEPAM 15 MG CAPSULE PO PRN (20:44)
[2020-11-04] MEDS: MAALOX/HYOSCYAMINE/LIDOCAINE 45 ML BTL PO PRN (21:36)
[2020-11-05] MEDS: VANCOMYCIN 1,400 MG in SODIUM CHLORIDE 0.9% 250 ML IV SCH (00:04)
[2020-11-05 01:59] VITALS: BP 135/73
[2020-11-05] MEDS: POTASSIUM CHLORIDE 20 MEQ, MAGNESIUM SULFATE 2 GM, THIAMINE 200 MG, MVI ADULT 10 ML, FO... IV SCH ×2 (02:07→22:30)
[2020-11-05] MEDS: ACETAMINOPHEN 325 MG TABLET PO PRN ×5 (02:15→21:12)
[2020-11-05] MEDS: PIPERACILLIN/TAZO 4.5 GM in DEXTROSE 5% 100 ML IVPB SCH ×4 (04:53→22:30)
[2020-11-05] MEDS: POTASSIUM CHLORIDE 20 MEQ TAB.ER.PRT PO SCH ×2 (09:02→16:35)
[2020-11-05] MEDS: K-PHOS NEUTRAL 250MG TAB PO SCH ×2 (09:02→21:12)
[2020-11-05] MEDS: BENZONATATE 100 MG CAPSULE PO PRN (09:03)
[2020-11-05 09:16] VITALS: BP 147/81
[2020-11-05] MEDS: ONDANSETRON 2MG/ML, 2ML IVPush PRN ×2 (09:16→16:30)
[2020-11-05] MEDS: MAALOX/HYOSCYAMINE/LIDOCAINE 45 ML BTL PO PRN ×3 (13:05→21:12)
[2020-11-05 13:26] VITALS: BP 127/76
[2020-11-05 15:27] LABS: CLOSTRIDIUM DIFFICILE ANTIGEN NEGATIVE; CLOSTRIDIUM DIFFICILE TOXIN NEGATIVE (Negative)
[2020-11-05] MEDS ORDERED: ONDANSETRON 4 MG TABLET ONE (16:24)
[2020-11-05 19:50] VITALS: BP 118/64
[2020-11-05] MEDS: TEMAZEPAM 15 MG CAPSULE PO PRN (21:12)
[2020-11-06 01:28] VITALS: BP 123/61
[2020-11-06] MEDS: PIPERACILLIN/TAZO 4.5 GM in DEXTROSE 5% 100 ML IVPB SCH (04:30)
[2020-11-06] MEDS: LOPERAMIDE 2 MG CAPSULE PO PRN ×3 (04:41→15:50)
[2020-11-06] MEDS: ACETAMINOPHEN 325 MG TABLET PO PRN ×4 (04:41→19:29)
[2020-11-06] MEDS: POTASSIUM CHLORIDE 20 MEQ TAB.ER.PRT PO SCH ×2 (09:17→15:50)
[2020-11-06] MEDS: BENZONATATE 100 MG CAPSULE PO PRN ×2 (09:17→18:32)
[2020-11-06] MEDS: K-PHOS NEUTRAL 250MG TAB PO SCH ×2 (09:17→21:13)
[2020-11-06 09:31] VITALS: BP 121/74
[2020-11-06] MEDS ORDERED: CEFTRIAXONE 1,000 MG IM SCH ×2 (10:00→10:12)
[2020-11-06] MEDS ORDERED: LOPERAMIDE 2 MG CAPSULE PO PRN (12:00)
[2020-11-06 15:02] VITALS: BP 119/67
[2020-11-06 20:23] VITALS: BP 116/64
[2020-11-06] MEDS: TEMAZEPAM 15 MG CAPSULE PO PRN (21:13)
[2020-11-06] MEDS: POTASSIUM CHLORIDE 20 MEQ, MAGNESIUM SULFATE 2 GM, THIAMINE 200 MG, MVI ADULT 10 ML, FO... IV SCH (22:30)
[2020-11-07] MEDS: ACETAMINOPHEN 325 MG TABLET PO PRN ×4 (01:33→20:46)
[2020-11-07] MEDS: MELATONIN 5 MG TABLET PO PRN ×2 (01:33→20:46)
[2020-11-07] MEDS: LOPERAMIDE 2 MG CAPSULE PO PRN ×2 (01:57→15:40)
[2020-11-07] MEDS ORDERED: CEFTRIAXONE 1,000 MG IM SCH (06:30)
[2020-11-07] MEDS ORDERED: AMOXICILLIN/CLAV 875-125MG TABLET PO SCH (06:30)
[2020-11-07 07:08] LABS: BASOPHILS % (AUTO) 1 % (0-1); EOSINOPHILS % (AUTO) 6 % (1-7); LYMPHOCYTES % (AUTO) 21 % (22-44); MEAN CORPUSCULAR HEMOGLOBIN 26.9 pg (27.5-34.5); MEAN CORPUSCULAR HGB CONC 33.1 g/dL (33.2-36.2); MEAN PLATELET VOLUME 7.3 fL (7.4-10.4); MONOCYTES % (AUTO) 9 % (2-9); NEUTROPHILS % (AUTO) 63 % (42-75); PLATELET COUNT 464 x10^3/uL (130-400); RED BLOOD COUNT 3.84 x10^6/uL (4.38-5.82); RED CELL DISTRIBUTION WIDTH 18.6 % (9.4-14.8)
[2020-11-07 07:09] LABS: ALBUMIN 1.7 g/dL (3.4-5.0); ANION GAP 6 mmol/L (5-15); CALCIUM 8.6 mg/dL (8.5-10.1); CHLORIDE 98 mmol/L (98-107)
[2020-11-07 07:10] LABS: HCT (SEDRATE) 31.2 % (39.2-51.8)
[2020-11-07 07:13] LABS: ALANINE AMINOTRANSFERASE 49 U/L (12-78); ALKALINE PHOSPHATASE 116 U/L (45-117); BILIRUBIN,TOTAL 0.4 mg/dL (0.2-1.0); C-REACTIVE PROTEIN, QUANT 0.82 mg/dL (0.02-0.49); CREATININE 0.35 mg/dL (0.7-1.3); TOTAL PROTEIN 5.4 g/dL (6.4-8.2)
[2020-11-07] MEDS ORDERED: AMPICILLIN/SULBACTAM 3 GM in SODIUM CHLORIDE 0.9% 100 ML IV SCH (10:00)
[2020-11-07] MEDS: POTASSIUM CHLORIDE 20 MEQ TAB.ER.PRT PO SCH ×2 (10:06→15:40)
[2020-11-07] MEDS: K-PHOS NEUTRAL 250MG TAB PO SCH ×2 (10:06→20:04)
[2020-11-07 10:58] VITALS: BP 134/76
[2020-11-07] MEDS: AMPICILLIN/SULBACTAM 3 GM in SODIUM CHLORIDE 0.9% 100 ML IV SCH ×2 (13:00→20:04)
[2020-11-07 14:43] VITALS: BP 116/65
[2020-11-07 18:23] VITALS: BP 124/75
[2020-11-07] MEDS: TEMAZEPAM 15 MG CAPSULE PO PRN (20:46)
[2020-11-07] MEDS: POTASSIUM CHLORIDE 20 MEQ, MAGNESIUM SULFATE 2 GM, THIAMINE 200 MG, MVI ADULT 10 ML, FO... IV SCH (23:53)
[2020-11-08] MEDS: AMPICILLIN/SULBACTAM 3 GM in SODIUM CHLORIDE 0.9% 100 ML IV SCH ×4 (02:12→20:24)
[2020-11-08 03:21] VITALS: BP 125/73
[2020-11-08 07:51] VITALS: BP 146/96
[2020-11-08] MEDS: POTASSIUM CHLORIDE 20 MEQ TAB.ER.PRT PO SCH ×3 (08:00→15:50)
[2020-11-08] MEDS: K-PHOS NEUTRAL 250MG TAB PO SCH ×2 (08:22→08:27)
[2020-11-08] MEDS: LOPERAMIDE 2 MG CAPSULE PO PRN ×3 (09:19→17:32)
[2020-11-08] MEDS: ACETAMINOPHEN 325 MG TABLET PO PRN ×4 (09:20→20:25)
[2020-11-08 13:37] VITALS: BP 115/68
[2020-11-08] MEDS: ONDANSETRON 2MG/ML, 2ML IVPush PRN (14:50)
[2020-11-08] MEDS: DIPHENHYDRAMINE 25 MG CAPSULE PO PRN ×2 (15:49→22:22)
[2020-11-08] MEDS: MELATONIN 5 MG TABLET PO PRN (20:25)
[2020-11-08] MEDS: TEMAZEPAM 15 MG CAPSULE PO PRN (20:25)
[2020-11-08 20:30] VITALS: BP 147/79
[2020-11-09] MEDS: AMPICILLIN/SULBACTAM 3 GM in SODIUM CHLORIDE 0.9% 100 ML IV SCH ×3 (02:15→19:56)
[2020-11-09 03:05] VITALS: BP 120/74
[2020-11-09] MEDS ORDERED: LACTASE 9,000 UNITS TABLET PO PRN (08:00)
[2020-11-09] MEDS: THIAMINE 100MG TABLET PO SCH (09:41)
[2020-11-09] MEDS: POTASSIUM CHLORIDE 20 MEQ TAB.ER.PRT PO SCH (09:41)
[2020-11-09 13:03] VITALS: BP 128/66
[2020-11-09 18:21] VITALS: BP 152/85
[2020-11-09] MEDS: LOPERAMIDE 2 MG CAPSULE PO PRN (19:56)
[2020-11-09] MEDS: TEMAZEPAM 15 MG CAPSULE PO PRN (19:56)
[2020-11-09] MEDS: MELATONIN 5 MG TABLET PO PRN (19:57)
[2020-11-10 01:00] VITALS: BP 114/58
[2020-11-10] MEDS: AMPICILLIN/SULBACTAM 3 GM in SODIUM CHLORIDE 0.9% 100 ML IV SCH ×4 (01:49→19:54)
[2020-11-10 07:39] VITALS: BP 122/68
[2020-11-10] MEDS: POTASSIUM CHLORIDE 20 MEQ TAB.ER.PRT PO SCH (08:46)
[2020-11-10] MEDS: THIAMINE 100MG TABLET PO SCH (08:46)
[2020-11-10] MEDS: LOPERAMIDE 2 MG CAPSULE PO PRN ×2 (10:46→19:53)
[2020-11-10 12:10] VITALS: BP 126/70
[2020-11-10 19:44] VITALS: BP 148/75
[2020-11-10] MEDS: TEMAZEPAM 15 MG CAPSULE PO PRN (19:53)
[2020-11-10] MEDS: MELATONIN 5 MG TABLET PO PRN (19:54)
[2020-11-11 00:33] VITALS: BP 109/67
[2020-11-11] MEDS: AMPICILLIN/SULBACTAM 3 GM in SODIUM CHLORIDE 0.9% 100 ML IV SCH ×4 (02:24→19:35)
[2020-11-11 06:14] VITALS: BP 123/71
[2020-11-11] MEDS: POTASSIUM CHLORIDE 20 MEQ TAB.ER.PRT PO SCH (08:04)
[2020-11-11] MEDS: THIAMINE 100MG TABLET PO SCH (08:04)
[2020-11-11] MEDS: LOPERAMIDE 2 MG CAPSULE PO PRN (08:56)
[2020-11-11 11:52] LABS: BASOPHILS % (AUTO) 1 % (0-1); EOSINOPHILS % (AUTO) 7 % (1-7); LYMPHOCYTES % (AUTO) 15 % (22-44); MEAN CORPUSCULAR HEMOGLOBIN 26.9 pg (27.5-34.5); MEAN CORPUSCULAR HGB CONC 33.1 g/dL (33.2-36.2); MEAN PLATELET VOLUME 7.3 fL (7.4-10.4); MONOCYTES % (AUTO) 9 % (2-9); NEUTROPHILS % (AUTO) 67 % (42-75); PLATELET COUNT 484 x10^3/uL (130-400); RED BLOOD COUNT 4.11 x10^6/uL (4.38-5.82); RED CELL DISTRIBUTION WIDTH 18.6 % (9.4-14.8)
[2020-11-11 12:06] LABS: ANION GAP 5 mmol/L (5-15); CALCIUM 8.1 mg/dL (8.5-10.1); CHLORIDE 99 mmol/L (98-107); CREATININE 0.36 mg/dL (0.7-1.3)
[2020-11-11 13:17] LABS: CLOSTRIDIUM DIFFICILE ANTIGEN NEGATIVE; CLOSTRIDIUM DIFFICILE TOXIN NEGATIVE (Negative)
[2020-11-11] MEDS: DIPHENHYDRAMINE 25 MG CAPSULE PO PRN (14:48)
[2020-11-11] MEDS: ACETAMINOPHEN 325 MG TABLET PO PRN ×2 (14:48→19:37)
[2020-11-11 14:55] VITALS: BP 118/67
[2020-11-11 19:15] VITALS: BP 154/84
[2020-11-11] MEDS: MELATONIN 5 MG TABLET PO PRN (19:35)
[2020-11-11] MEDS: PREGABALIN 25 MG CAPSULE PO SCH (19:35)
[2020-11-11] MEDS: TEMAZEPAM 15 MG CAPSULE PO PRN (19:42)
[2020-11-12 00:55] VITALS: BP 120/73
[2020-11-12] MEDS: AMPICILLIN/SULBACTAM 3 GM in SODIUM CHLORIDE 0.9% 100 ML IV SCH ×4 (01:11→19:17)
[2020-11-12 07:46] VITALS: BP 137/79
[2020-11-12] MEDS ORDERED: POTASSIUM CHLORIDE 20 MEQ TAB.ER.PRT PO SCH (09:00)
[2020-11-12] MEDS: THIAMINE 100MG TABLET PO SCH (10:11)
[2020-11-12] MEDS: LOPERAMIDE 2 MG CAPSULE PO SCH ×3 (10:11→20:22)
[2020-11-12] MEDS: PREGABALIN 25 MG CAPSULE PO SCH ×2 (10:11→19:17)
[2020-11-12 13:43] VITALS: BP 130/76
[2020-11-12] MEDS: MELATONIN 5 MG TABLET PO PRN (19:17)
[2020-11-12] MEDS: TEMAZEPAM 15 MG CAPSULE PO PRN (19:17)
[2020-11-12 20:27] VITALS: BP 123/54
[2020-11-13 00:19] VITALS: BP 112/64
[2020-11-13] MEDS: AMPICILLIN/SULBACTAM 3 GM in SODIUM CHLORIDE 0.9% 100 ML IV SCH ×4 (02:02→20:38)
[2020-11-13] MEDS: LOPERAMIDE 2 MG CAPSULE PO SCH ×4 (03:11→20:32)
[2020-11-13 07:06] VITALS: BP 127/72
[2020-11-13] MEDS: PREGABALIN 25 MG CAPSULE PO SCH ×2 (08:08→20:32)
[2020-11-13] MEDS: THIAMINE 100MG TABLET PO SCH (08:08)
[2020-11-13 13:37] VITALS: BP 115/74
[2020-11-13 19:27] VITALS: BP 125/69
[2020-11-13] MEDS: TEMAZEPAM 15 MG CAPSULE PO PRN (20:32)
[2020-11-13] MEDS: MELATONIN 5 MG TABLET PO PRN (20:33)
[2020-11-13] MEDS: ACETAMINOPHEN 325 MG TABLET PO PRN (20:38)
[2020-11-14 00:28] VITALS: BP 109/66
[2020-11-14] MEDS: ACETAMINOPHEN 325 MG TABLET PO PRN (00:40)
[2020-11-14] MEDS: AMPICILLIN/SULBACTAM 3 GM in SODIUM CHLORIDE 0.9% 100 ML IV SCH ×3 (02:58→15:36)
[2020-11-14] MEDS: LOPERAMIDE 2 MG CAPSULE PO SCH ×4 (02:58→19:57)
[2020-11-14 06:43] VITALS: BP 135/72
[2020-11-14 06:55] LABS: BASOPHILS % (AUTO) 1 % (0-1); EOSINOPHILS % (AUTO) 11 % (1-7); LYMPHOCYTES % (AUTO) 27 % (22-44); MEAN CORPUSCULAR HEMOGLOBIN 26.9 pg (27.5-34.5); MEAN CORPUSCULAR HGB CONC 33.5 g/dL (33.2-36.2); MEAN PLATELET VOLUME 7.5 fL (7.4-10.4); MONOCYTES % (AUTO) 15 % (2-9); NEUTROPHILS % (AUTO) 46 % (42-75); PLATELET COUNT 427 x10^3/uL (130-400); RED CELL DISTRIBUTION WIDTH 17.9 % (9.4-14.8)
[2020-11-14 06:59] LABS: CHLORIDE 101 mmol/L (98-107)
[2020-11-14 07:05] LABS: ALANINE AMINOTRANSFERASE 59 U/L (12-78); ALKALINE PHOSPHATASE 145 U/L (45-117); ANION GAP 8 mmol/L (5-15); BILIRUBIN,TOTAL 0.4 mg/dL (0.2-1.0); C-REACTIVE PROTEIN, QUANT 0.34 mg/dL (0.02-0.49); CALCIUM 8.5 mg/dL (8.5-10.1); CREATININE 0.33 mg/dL (0.7-1.3); TOTAL PROTEIN 6.1 g/dL (6.4-8.2)
[2020-11-14] MEDS: PREGABALIN 25 MG CAPSULE PO SCH ×2 (08:03→19:56)
[2020-11-14] MEDS: THIAMINE 100MG TABLET PO SCH (08:03)
[2020-11-14 08:31] LABS: HCT (SEDRATE) 31.4 % (39.2-51.8)
[2020-11-14 12:37] VITALS: BP 122/68
[2020-11-14] MEDS: TEMAZEPAM 15 MG CAPSULE PO PRN (19:57)
[2020-11-14] MEDS: MELATONIN 5 MG TABLET PO PRN (19:57)
[2020-11-14 20:00] VITALS: BP 125/64
[2020-11-15 01:27] VITALS: BP 122/72
[2020-11-15] MEDS: LOPERAMIDE 2 MG CAPSULE PO SCH ×4 (03:28→19:33)
[2020-11-15] MEDS: AMPICILLIN/SULBACTAM 3 GM in SODIUM CHLORIDE 0.9% 100 ML IV SCH ×4 (05:59→18:12)
[2020-11-15 08:00] VITALS: BP 126/53
[2020-11-15] MEDS: THIAMINE 100MG TABLET PO SCH (09:12)
[2020-11-15] MEDS: PREGABALIN 25 MG CAPSULE PO SCH ×2 (09:12→19:33)
[2020-11-15 13:30] VITALS: BP 146/72
[2020-11-15 18:33] VITALS: BP 138/80
[2020-11-15] MEDS: TEMAZEPAM 15 MG CAPSULE PO PRN (19:33)
[2020-11-15] MEDS: MELATONIN 5 MG TABLET PO PRN (19:33)
[2020-11-15] MEDS: ACETAMINOPHEN 325 MG TABLET PO PRN (19:52)
[2020-11-16] MEDS: AMPICILLIN/SULBACTAM 3 GM in SODIUM CHLORIDE 0.9% 100 ML IV SCH ×4 (00:16→18:08)
[2020-11-16] MEDS: LOPERAMIDE 2 MG CAPSULE PO SCH ×4 (03:30→19:51)
[2020-11-16] MEDS: THIAMINE 100MG TABLET PO SCH (07:20)
[2020-11-16] MEDS: PREGABALIN 25 MG CAPSULE PO SCH ×2 (07:21→19:51)
[2020-11-16 12:54] VITALS: BP 117/69
[2020-11-16] MEDS: TEMAZEPAM 15 MG CAPSULE PO PRN (19:55)
[2020-11-16] MEDS: MELATONIN 5 MG TABLET PO PRN (19:55)
[2020-11-16 19:56] VITALS: BP 122/76
[2020-11-16] MEDS: ACETAMINOPHEN 325 MG TABLET PO PRN (21:32)
[2020-11-17] MEDS: AMPICILLIN/SULBACTAM 3 GM in SODIUM CHLORIDE 0.9% 100 ML IV SCH ×4 (00:08→19:52)
[2020-11-17 00:21] VITALS: BP 115/66
[2020-11-17] MEDS: LOPERAMIDE 2 MG CAPSULE PO SCH ×4 (03:53→19:52)
[2020-11-17 06:35] VITALS: BP 123/72
[2020-11-17] MEDS: THIAMINE 100MG TABLET PO SCH (09:32)
[2020-11-17] MEDS: PREGABALIN 25 MG CAPSULE PO SCH ×2 (09:32→19:52)
[2020-11-17] MEDS: ACETAMINOPHEN 325 MG TABLET PO PRN (19:13)
[2020-11-17] MEDS: MELATONIN 5 MG TABLET PO PRN (19:52)
[2020-11-17] MEDS: TEMAZEPAM 15 MG CAPSULE PO PRN (19:52)
[2020-11-18 00:29] VITALS: BP 107/65
[2020-11-18] MEDS: LOPERAMIDE 2 MG CAPSULE PO SCH ×2 (03:59→08:19)
[2020-11-18] MEDS: AMPICILLIN/SULBACTAM 3 GM in SODIUM CHLORIDE 0.9% 100 ML IV SCH ×2 (05:23→10:45)
[2020-11-18 07:44] VITALS: BP 127/68
[2020-11-18] MEDS: THIAMINE 100MG TABLET PO SCH (08:19)
[2020-11-18] MEDS: PREGABALIN 25 MG CAPSULE PO SCH (08:19)
[2020-11-18] MEDS: ACETAMINOPHEN 325 MG TABLET PO PRN (08:27)
[2020-11-18] MEDS ORDERED: UNASYN IV (09:49)
[2020-11-18] MEDS ORDERED: LOPE2CAP PO (09:49)
[2020-11-18] MEDS ORDERED: ACET325T26 PO (09:49)
[2020-11-18] MEDS ORDERED: PREG25CA PO (11:39)
[2020-11-18 14:10] VITALS: BP 130/81
== END 2020-11-18 15:12 | DRG 853 ==
LOC: ED 15:42 → EDIP 15:45 → 4EST 17:44 → 3N 11-10 23:34
PROVIDERS: ADMIT Hospitalist; ATTEND Family Medicine
PROC: 0R9M0ZZ Drainage of Left Elbow Joint, Open Approach (ICD-10-PCS; principal; 2020-11-02 17:00)
PROC: 02HV33Z Insertion of Infusion Device into Superior Vena Cava, Percutaneous Approach (ICD-10-PCS; 2020-11-06)
PROC: B5181ZA Fluoroscopy of Superior Vena Cava using Low Osmolar Contrast, Guidance (ICD-10-PCS; 2020-11-06)
PROC: B548ZZA Ultrasonography of Superior Vena Cava, Guidance (ICD-10-PCS; 2020-11-06)
PROC: B5181ZA Fluoroscopy of Superior Vena Cava using Low Osmolar Contrast, Guidance (ICD-10-PCS; 2020-11-07)
PROC: 02HV33Z Insertion of Infusion Device into Superior Vena Cava, Percutaneous Approach (ICD-10-PCS; 2020-11-07)
PROC: B548ZZA Ultrasonography of Superior Vena Cava, Guidance (ICD-10-PCS; 2020-11-07)
PROC: B5181ZA Fluoroscopy of Superior Vena Cava using Low Osmolar Contrast, Guidance (ICD-10-PCS; 2020-11-18)
PROC: 02HV33Z Insertion of Infusion Device into Superior Vena Cava, Percutaneous Approach (ICD-10-PCS; 2020-11-18)
PROC: B548ZZA Ultrasonography of Superior Vena Cava, Guidance (ICD-10-PCS; 2020-11-18)
DX: A41.9 Sepsis, unspecified organism (principal); E43 Unspecified severe protein-calorie malnutrition; L03.114 Cellulitis of left upper limb; F10.239 Alcohol dependence with withdrawal, unspecified; G93.40 Encephalopathy, unspecified; M00.9 Pyogenic arthritis, unspecified; E22.2 Syndrome of inappropriate secretion of antidiuretic hormone; B19.20 Unspecified viral hepatitis C without hepatic coma; D64.9 Anemia, unspecified; E87.6 Hypokalemia; F10.229 Alcohol dependence with intoxication, unspecified; F17.200 Nicotine dependence, unspecified, uncomplicated; I10 Essential (primary) hypertension; K21.9 Gastro-esophageal reflux disease without esophagitis; K76.0 Fatty (change of) liver, not elsewhere classified; M19.022 Primary osteoarthritis, left elbow; Z59.0 Homelessness
CPT/HCPCS: 36415; 36573; 74018; 76700; 76705; 80048; 80053; 80202; 80307; 82607; 82728; 83540; 83550; 83605; 83690; 83735; 84100; 84132; 84145; 84443; 85025; 85651; 86140; 87040; 87070; 87075; 87147; 87205; 87324; 87635; 96374; 96375; G0378; J0295; J0696; J1100; J2250; J2405; J2543; J2550; J2704; J3010; J3370; J3411; J3475; J3480; J7042; C1751; J0330; J1200; J7030; J7050; Q0163

== ENCOUNTER 2020-11-21 02:37 | Emergency (ER) | payer MEDICARE, MEDICAID ==
[~2020-11-21] VITALS: Ht 172.7 cm; Wt 63.6 kg
[~2020-11-21 02:37] MED LIST changes: +ACET325T26 PO; +LOPE2CAP PO; +PREG25CA PO; +UNASYN IV
[2020-11-21 03:08] VITALS: BP 120/73
--- NOTE | 2020-11-21 05:54 | NUR ---
patient continually keeps taking off vital sign monitoring equipment
--- NOTE | 2020-11-21 06:57 | NUR ---
PT SLEEPING IN BED. VSS.
--- NOTE | 2020-11-21 08:10 | NUR ---
pt ambulates to bathroom with help of walker. no complications
== END 2020-11-21 12:24 ==
LOC: ED 02:45 → EDIP 03:07 → UNDOADMOB 03:07
DX: T82.594A Other mechanical complication of infusion catheter, initial encounter (principal); Y83.9 Surgical procedure, unspecified as the cause of abnormal reaction of the patient, or of later complication, without mention of misadventure at the time of the procedure; Y92.89 Other specified places as the place of occurrence of the external cause
CPT/HCPCS: 36573; 99285; C1751